=== PATIENT | female | born 1975 | race Caucasian/White ===

== ENCOUNTER 2020-10-03 08:14 | Outpatient (REF) | payer OTHER, SELFPAY ==
[2020-10-03 08:45] LABS: MANUAL DIFF FLAG NO
[2020-10-03 08:51] LABS: Basophils Percent Auto 0.6 % (0-2); Eosinophils Absolute Auto 0.2 X10*3/uL (0.0-0.4); Eosinophils Percent Auto 3.4 % (0-4); Hematocrit 35.4 % (37-47); Imm Gran Abs Auto 0.01 X10*3/uL (0.00-0.03); Imm Gran Pct Auto 0.2 % (0.0-0.4); Lymphocytes Absolute Auto 1.8 X10*3/uL (1.2-4.9); Lymphocytes Percent Auto 38.9 % (20-40); Mean Corpuscular HGB Conc 31.1 g/dl (31.0-35.0); Mean Corpuscular Hemoglobin 26.3 pg (27.0-33.0); Mean Corpuscular Volume 84.7 fL (80-98); Mean Platelet Volume 10.7 fL (9.4-12.3); Monocytes Absolute Auto 0.3 X10*3/uL (0.1-1.2); Monocytes Percent Auto 6.1 % (2-11); Neutrophils Absolute Auto 2.4 X10*3/uL (2.0-8.3); Neutrophils Percent Auto 50.8 % (45-73); Platelet Count 167 X10*3/uL (160-400); Red Blood Count 4.18 X10*6/uL (4.20-5.50); Red Cell Distribution Width 14.3 % (11.0-16.0); White Blood Count 4.7 X10*3/uL (4.8-10.8)
[2020-10-03 09:12] LABS: Alanine Aminotransferase 10 U/L (0-31); Albumin Level 3.8 g/dL (3.5-5.0); Alkaline Phosphatase 78 U/L (39-117); Anion Gap 10 (12-20); Aspartate Amino Transferase 16 U/L (5-31); Bilirubin Total 0.4 mg/dL (0.0-1.0); Blood Urea Nitrogen 11 mg/dL (9-16); Calcium 8.6 mg/dL (8.4-10.2); Carbon Dioxide 27 mmol/L (22-29); Chloride 108 mmol/L (96-108); Cholesterol 152 mg/dL; Estimated Glomerular Filt Rate > 60; Glucose Fasting 89 mg/dL (60-99); HDL Cholesterol 56 mg/dL; Iron 54 mcg/dL (30-160); LDL Cholesterol Calculated 86 mg/dl; Percent Iron Saturation 16 % (15-50); Potassium 4.1 mmol/L (3.3-5.1); Sodium 141 mmol/L (135-145); Total Iron Binding Capacity 329 mcg/dL (228-428); Total Protein 6.1 g/dL (6.5-8.0); Triglycerides 53 mg/dL; Unsaturated Iron Binding 275 ug/dL
[2020-10-10 18:02] LABS: Vitamin D 25-OH, D2 <4 ng/mL; Vitamin D 25-OH, D3 10 ng/mL; Vitamin D 25-OH, Total 10 ng/mL (30-100)
== END 2020-10-03 08:15 | disposition home or self-care (01) ==
LOC: HO.LAB 08:14
PROVIDERS: PCP Internal Medicine; Visit Provider Internal Medicine
DX: D64.9 Anemia, unspecified (principal); J45.909 Unspecified asthma, uncomplicated; E66.3 Overweight; E78.5 Hyperlipidemia, unspecified; E55.9 Vitamin D deficiency, unspecified
CPT/HCPCS: 36415; 80053; 80061; 82306; 83540; 85025

== ENCOUNTER 2020-10-13 07:50 | Outpatient (REF) | payer OTHER, SELFPAY ==
--- NOTE | ~2020-10-13 | MM_ITS ---
EXAMINATION: MM DIAGNOSTIC DIGITAL BREAST TOMOSYNTHESIS, BILATERAL US DIAGNOSTIC ULTRASOUND BREAST, RIGHT CLINICAL INFORMATION: 45-year-old with palpable nodularity noted by patient posterior outer right breast and upper right breast. Prior history reduction mammoplasty 1996. Significant weight loss following bariatric surgery since prior mammography. Prior outside breast imaging performed in [place] currently unavailable. Family history breast cancer, maternal grandmother. The lifetime risk of breast cancer based on the Tyrer-Cuzick Model is 12%. COMPARISON: None. TECHNIQUE: Digital breast tomosynthesis is performed in both the craniocaudal and mediolateral oblique views along with computer-aided detection (CAD). Synthesized 2D images are generated from the tomosynthesis. Additional bilateral exaggerated CC views are provided. Ultrasound right breast is targeted to the areas of clinical concern and mammographic findings posterior outer right breast and upper posterior right breast. Grayscale imaging and color Doppler are performed without and with harmonics. FINDINGS: There are scattered areas of fibroglandular density (ACR BI-RADS breast composition Category b). There is minor bilateral scarring and multiple benign small round calcifications predominantly superficial anterior breasts, consistent with the history of bilateral reduction mammoplasty. The left breast is unremarkable. There is no significant mass or architectural abnormality. The right breast has macrolobulated mass posterior 9:00 position in area of clinical concern measuring approximately 2.3 x 1.8 cm. There is also a mass posterior 1:00 position with macrolobulated margins corresponding to the area of palpable area measuring around 1.5 cm. This is a solitary small internal round calcification. Ultrasound right breast demonstrates hypoechoic macrolobulated mass posterior 9:00 position at site of clinical concern with macrolobulated margins and overall size approximately 2.3 x 1.3 x 1.4 cm. There is some scattered internal color flow. No increased or decreased through transmission of sound. There is a smaller mass posterior 1:00 position 12 cm from nipple corresponding to the other area of palpable concern and mammographic finding, circumscribed and hypoechoic, with overall size approximately 1.4 x 0.9 cm. There is small specular echo within the lesion corresponding to the calcification on mammography. There is no increased or decreased through transmission of sound. Some internal color flow is seen. Results are discussed with the patient at time of visit. The patient has had significant intentional weight loss of over 100 pounds following bariatric surgery. The palpable masses are of uncertain chronicity and could represent chronic fibroadenomas. Radiology department will attempt to retrieve prior outside breast imaging exams (or reports) from [place] to allow for comparison in an addendum report. If the masses are new or have increased in size, or if the prior outside exams cannot be retrieved, then ultrasound-guided core sampling would be recommended. MM/MM tomosynthesis diagnostic BI IMPRESSION: 1. Right: 2 solid masses corresponding to the areas of palpable concern posterior outer breast 2.3 cm, and posterior upper breast 1.4 cm, statistically likely fibroadenomas. 2. Left: No mammographic evidence of malignancy. ASSESSMENT: BI-RADS 0: Incomplete - pending review of outside imaging exams RECOMMENDATION: 1. Radiology department staff will attempt to retrieve prior outside breast imaging exams. 2. If outside exams are unable to be retrieved, then ultrasound-guided core sampling of the right breast masses would be recommended.
== END 2020-10-13 07:51 | disposition home or self-care (01) ==
LOC: HO.MAMMO 07:50
PROVIDERS: Visit Provider Internal Medicine
DX: N63.15 Unspecified lump in the right breast, overlapping quadrants (principal); N63.12 Unspecified lump in the right breast, upper inner quadrant
CPT/HCPCS: 76642; 77062; 77066

== ENCOUNTER 2020-11-09 08:42 | Outpatient (REF) | payer OTHER, SELFPAY ==
--- NOTE | ~2020-11-09 | US_ITS ---
EXAMINATION: ULTRASOUND GUIDED CORE BIOPSY BREAST (TWO SITES), RIGHT POST PROCEDURE DIGITAL MAMMOGRAM, RIGHT CLINICAL INFORMATION: 45-year-old with palpable nodularity posterior upper outer right breast and upper right breast, circumscribed solid on ultrasound, possibly fibroadenomas. COMPARISON: Mammography and targeted right breast ultrasound 10/13/2020. FINDINGS: Proper informed consent is obtained from the patient after discussion of the procedure, potential risks and complications, and alternatives. Patient was given an opportunity for questions. The patient appeared to understand. The patient consented to the procedure and signed the consent form. SPECIMEN A: LOCATION: Posterior outer right breast. GUIDANCE: Ultrasound-guided; aseptic technique. LESION: Circumscribed macrolobulated mass 2.3 cm. APPROACH: Lateral medial. ANESTHESIA: 10 mL 1% lidocaine. DERMATOTOMY: Single skin sarah dermatotomy performed. NEEDLE: 14-gauge Achieve core biopsy device with 13.5-gauge co-axial guide needle. CORES: 5. CLIP: HydroMARK; shape: butterfly. SPECIMEN B: New anesthesia and biopsy supplies are used. LOCATION: Posterior upper right breast. GUIDANCE: Ultrasound-guided; aseptic technique. LESION: Circumscribed solid mass 1.4 cm. APPROACH: Oblique caudal cranial. ANESTHESIA: 17 mL 1% lidocaine. DERMATOTOMY: A new skin sarah dermatotomy is performed to allow for the second site of biopsy. NEEDLE: 14-gauge Achieve core biopsy device with 13.5-gauge co-axial guide needle. CORES: 5. CLIP: HydroMARK; shape: open coil. POST PROCEDURE DIGITAL MAMMOGRAM: The post biopsy mammogram is performed in separate room using separate digital mammography equipment from the biopsy procedure. CC, exaggerated CC, and MLO views are obtained. There are scattered areas of fibroglandular density (breast composition category: b). The clip markers are in position. No gross hematoma. The patient tolerated the procedure well. No immediate complications. Home instructions reviewed with the patient. Final pathology results are pending. US/US breast ndl core bio ea add IMPRESSION: 1. Status post ultrasound-guided core biopsy right breast breast, 2 sites sampled. 2. Clips placed: HydroMARK; shape: butterfly and HydroMARK; shape: open coil 3. Pathology pending. An addendum report will be issued.
--- NOTE | ~2020-11-09 | US_ITS ---
EXAMINATION: ULTRASOUND GUIDED CORE BIOPSY BREAST (TWO SITES), RIGHT POST PROCEDURE DIGITAL MAMMOGRAM, RIGHT CLINICAL INFORMATION: 45-year-old with palpable nodularity posterior upper outer right breast and upper right breast, circumscribed solid on ultrasound, possibly fibroadenomas. COMPARISON: Mammography and targeted right breast ultrasound 10/13/2020. FINDINGS: Proper informed consent is obtained from the patient after discussion of the procedure, potential risks and complications, and alternatives. Patient was given an opportunity for questions. The patient appeared to understand. The patient consented to the procedure and signed the consent form. SPECIMEN A: LOCATION: Posterior outer right breast. GUIDANCE: Ultrasound-guided; aseptic technique. LESION: Circumscribed macrolobulated mass 2.3 cm. APPROACH: Lateral medial. ANESTHESIA: 10 mL 1% lidocaine. DERMATOTOMY: Single skin sarah dermatotomy performed. NEEDLE: 14-gauge Achieve core biopsy device with 13.5-gauge co-axial guide needle. CORES: 5. CLIP: HydroMARK; shape: butterfly. SPECIMEN B: New anesthesia and biopsy supplies are used. LOCATION: Posterior upper right breast. GUIDANCE: Ultrasound-guided; aseptic technique. LESION: Circumscribed solid mass 1.4 cm. APPROACH: Oblique caudal cranial. ANESTHESIA: 17 mL 1% lidocaine. DERMATOTOMY: A new skin sarah dermatotomy is performed to allow for the second site of biopsy. NEEDLE: 14-gauge Achieve core biopsy device with 13.5-gauge co-axial guide needle. CORES: 5. CLIP: HydroMARK; shape: open coil. POST PROCEDURE DIGITAL MAMMOGRAM: The post biopsy mammogram is performed in separate room using separate digital mammography equipment from the biopsy procedure. CC, exaggerated CC, and MLO views are obtained. There are scattered areas of fibroglandular density (breast composition category: b). The clip markers are in position. No gross hematoma. The patient tolerated the procedure well. No immediate complications. Home instructions reviewed with the patient. Final pathology results are pending. US/US breast ndl core biopsy RT IMPRESSION: 1. Status post ultrasound-guided core biopsy right breast breast, 2 sites sampled. 2. Clips placed: HydroMARK; shape: butterfly and HydroMARK; shape: open coil 3. Pathology pending. An addendum report will be issued.
== END 2020-11-09 08:43 | disposition home or self-care (01) ==
LOC: HO.MAMMO 08:42
PROVIDERS: Visit Provider Surgery
DX: N63.15 Unspecified lump in the right breast, overlapping quadrants (principal); N63.12 Unspecified lump in the right breast, upper inner quadrant
CPT/HCPCS: 19083; 19084; 19286; 77065; 88305; 99202; A4648

== ENCOUNTER → 2020-11-16 15:56 | Outpatient (BNVA) | payer OTHER, SELFPAY | PROVIDERS: PCP Internal Medicine; Referring Provider Internal Medicine; Visit Provider Surgery | DX: D24.9 Benign neoplasm of unspecified breast (principal) | CPT/HCPCS: 99212 ==

== ENCOUNTER 2021-02-21 12:28 | Outpatient (REF) | payer OTHER, SELFPAY ==
[2021-02-21 14:09] LABS: Mean Corpuscular HGB Conc 30.6 g/dl (31.0-35.0); Mean Corpuscular Hemoglobin 25.6 pg (27.0-33.0); Mean Corpuscular Volume 83.7 fL (80-98); Mean Platelet Volume 12.4 fL (9.4-12.3); Platelet Count 181 X10*3/uL (160-400); Red Cell Distribution Width 14.6 % (11.0-16.0); White Blood Count 3.4 X10*3/uL (4.8-10.8)
[2021-02-21 14:11] LABS: Appearance Urine HAZY; Color Urine YELLOW; Glucose Urine UA NEG (NEG); Leukocyte Esterase Urine NEG (NEG); Nitrite Urine NEG (NEG); PH 6.5 (5.0-8.0); Specific Gravity - Urine 1.025 (1.005-1.025); Urine Blood NEG (NEG); Urine Ketones NEG (NEG); Urine Protein TRACE MG/DL (NEG-TRACE)
[2021-02-21 14:30] LABS: Alanine Aminotransferase 11 U/L (0-31); Alkaline Phosphatase 79 U/L (39-117); Anion Gap 11 (12-20); Aspartate Amino Transferase 18 U/L (5-31); Bilirubin Direct < 0.2 mg/dL (0.0-0.5); Bilirubin Total 0.5 mg/dL (0.0-1.0); Blood Urea Nitrogen 8 mg/dL (9-16); Calcium 9.1 mg/dL (8.4-10.2); Carbon Dioxide 26 mmol/L (22-29); Chloride 108 mmol/L (96-108); Cholesterol 144 mg/dL; Estimated Glomerular Filt Rate > 60; Glucose Random 66 mg/dL (60-115); HDL Cholesterol 54 mg/dL; LDL Cholesterol Calculated 71 mg/dl; Potassium 3.6 mmol/L (3.3-5.1); Sodium 141 mmol/L (135-145); Total Protein 6.4 g/dL (6.5-8.0); Triglycerides 99 mg/dL
[2021-02-22 13:22] LABS: Mumps Virus IgG Antibody <9.00 AU/mL; Rubella IgG Antibody 1.82 Index
[2021-02-24 14:46] LABS: TS Negative Control Passed; TS Panel A 0; TS Panel B 0; TS Positive Control Passed; TSpotTB Negative (SeeBelow)
== END 2021-02-21 12:29 | disposition home or self-care (01) ==
LOC: HO.HMGCLDS 12:28
PROVIDERS: PCP Internal Medicine; Visit Provider Internal Medicine
DX: Z00.00 Encounter for general adult medical examination without abnormal findings (principal); Z01.84 Encounter for antibody response examination
CPT/HCPCS: 36415; 80048; 80061; 80076; 81003; 85027; 86481; 86735; 86762; 86765; 86787

== ENCOUNTER 2021-03-29 07:38 | Emergency (ER) | payer OTHER, SELFPAY ==
--- NOTE | ~2021-03-29 | CT_ITS ---
EXAMINATION: CT ABDOMEN AND PELVIS WITH CONTRAST CLINICAL INFORMATION: History of gastric bypass. Abdominal pain. Evaluate for obstruction. COMPARISON: None TECHNIQUE: Multidetector volumetric images were obtained from the superior aspect of the liver through the pubic symphysis following administration 85 mL of Omnipaque 350 intravenous contrast. Sagittal and coronal reformatted images were obtained on the technologist's workstation. No oral contrast given. This CT examination was performed using dose optimization techniques as appropriate, variously including the following: *Automated exposure control *Adjustment of mA and/or kV according to patient size (this includes techniques or standardized protocols for targeted exams where dose is matched to indication/reason for exam; i.e. extremities or head) *Use of iterative reconstruction technique DLP: 648 mGy-cm FINDINGS: LUNG BASES: No acute findings in the visualized lung bases. No pulmonary consolidation or pleural effusion at either lung base. 2.1 x 2.3 cm solid, lobulated lesion of the right breast (image 50, series 4) corresponds to the previously biopsied fibroadenoma. LIVER: The liver has normal size, shape, and attenuation. No evidence of liver mass. GALLBLADDER AND BILIARY TREE: Gallbladder is surgically absent. No bile duct dilatation. PANCREAS: Normal. No edema, pancreatic ductal dilatation or mass. SPLEEN: Normal. ADRENAL GLANDS: Normal. KIDNEYS AND URETERS: The kidneys have normal size and cortical thickness. No solid mass or perinephric fluid collection. No urolithiasis or hydroureteronephrosis. BLADDER: Normal. No calculi or wall thickening. BOWEL AND PERITONEUM: Stomach is unremarkable. No dilated loops of bowel. The appendix is normal. No overt bowel wall thickening or mesenteric fat stranding. No ascites or pneumoperitoneum. ABDOMINAL WALL: Minimal protrusion of fat into the umbilicus. VASCULATURE: Abdominal aorta is normal in size and its branches are widely patent. Inferior vena cava is unremarkable LYMPH NODES: No pathologic sized lymph nodes in the abdomen or pelvis. No inguinal lymphadenopathy. PELVIC VISCERA: The contraceptive device is well centered within the endometrium. 1 cm and 1.9 cm calcified leiomyomas of the anterior uterine fundus. No evidence of ovarian mass. The 1 cm transverse diameter structure posterior to the right adnexa appears to represent an underdistended loop of small bowel (image 67, series 3) whereas the 0.8 x 3.2 cm hypodense structure in the left adnexal area might represent a hydrosalpinx (image 68, series 3). Small, physiologic amount free fluid is present in the posterior cul-de-sac. SKELETAL: Unremarkable. CT/CT abdomen pelvis w con IMPRESSION: * No acute imaging abnormalities in the abdomen or pelvis. No evidence of acute inflammatory change or obstruction of bowel, status post Deepthi-en-Y gastric bypass. * No evidence of nephrolithiasis or hydronephrosis. * There are two calcified leiomyomas of the uterine fundus. IUD is in satisfactory position. There is a possible left-sided hydrosalpinx.
[2021-03-29 07:52] VITALS: BP 138/89; PULSE 55; RESP 15; TEMP 36.8; O2SAT 98; BMI 23.3
--- NOTE | 2021-03-29 08:09 | ED_ITS ---
HPI - Abdominal Pain General Chief Complaint: Abdominal Pain Stated Complaint: ABD PAIN Time Seen by Provider: 03/29/21 07:53 Source: patient Mode of arrival: ambulatory Limitations: no limitations History of Present Illness HPI narrative: 45-year-old female who presents emergency department for evaluation of abdominal pain. She states the pain started on Saturday (3 days prior sees. The pain came on gradually but got progressively worse. She points to her epigastric, left upper quadrant and left lower quadrant when asked to localize the pain. She states the pain is a constant, burning sensation and is 9/10 at its worst. She states that feels similar to her gallbladder pain, she had a cholecystectomy in 2018. The patient states she has had 3 episodes of vomiting since onset of the pain. She states she has had poor appetite and poor oral intake. She has persistent nausea. She states that her last bowel movement was on Saturday morning, 3 days prior. Patient does have a history of gastric bypass surgery done on March 19, 2020 17 at [facility] in [place]. Related Data Home Medications Medication Instructions Recorded Confirmed omeprazole 20 mg tablet,delayed 20 mg PO BID 11/09/20 11/16/20 release Previous Rx's Medication Instructions Recorded albuterol sulfate 90 mcg/actuation 2 puff INHALATION Q4-6H PRN 30 09/29/20 aerosol inhaler Days #6.7 g fluticasone propionate 110 1 puff INHALATION Q12H 30 Days #12 09/29/20 mcg/actuation HFA aerosol inhaler g (Flovent HFA) ergocalciferol (vitamin D2) 1,250 1,250 mcg PO QWEEK 90 Days #13 cap 10/10/20 mcg (50,000 unit) capsule albuterol sulfate 2.5 mg INHALATION Q4-6H PRN 30 01/19/21 Days #75 ml Allergies Allergy/AdvReac Type Severity Reaction Status Date / Time seafood Allergy Mild mild Verified 02/21/21 11:53 Review of Systems Review of Systems Yes all other systems are reviewed and are negative Physical Exam Vital Signs: Vital Signs: Last Vital Signs Temp 97.9 F 03/29/21 11:13 Pulse 51 03/29/21 11:13 Resp 16 03/29/21 11:13 BP 110/67 03/29/21 11:13 Pulse Ox 98 03/29/21 11:13 Body Mass Index 23.3 Const: General: cooperative and no acute distress Orientation/consciousness: oriented to person and oriented to place Limitations: no limitations HENMT: Head: Yes normal to inspection, Yes normocephalic and Yes atraumatic Ears: external ears normal General nose exam: Normal external nose present Face and sinus: Yes normal facial exam Mouth: Normal oral and palatal mucosa present Throat: Yes posterior oropharynx normal Eyes: General: appearance normal, both eyes and all related structures Pupils: Equal, round and reactive pupils present Neck: Neck: Yes normal visual inspection, Yes no lymphadenopathy, Yes trachea midline and Yes supple Chest: Chest palpation & inspection: normal inspection of the chest and normal palpation of entire chest wall Resp: Effort & Inspection: normal respiratory effort and able to speak in complete sentences Auscultation: wheezes (Diffuse inspiratory expiratory wheezing) Cardio: Rate: regular rate Rhythm: regular rhythm Heart sounds: S1 normal heart sound present, S2 normal heart sound present and no murmurs GI: Inspection: Yes normal to inspection Palpation (GI): Soft to palpation, Tenderness to palpation present (GI) in the epigastrum (Moderate), in the LLQ (Moderate) and in the LUQ (Moderate) and no guarding Auscultation: normal bowel sounds : General: Yes no CVA tenderness Back/Spine/Pelvis: Back: no CVA tenderness Skin: General skin exam: no rashes or lesions noted Neuro: General: oriented to person and oriented to place Cranial nerves: Yes CN's II-XII intact bilaterally and Yes Equal, round and reactive pupils present Cognition (Neuro): normal cognition Motor exam (neuro): 5/5 motor strength present throughout Extrem: General: Yes normal to inspection Psych: Appearance: grossly normal Speech and movement: Normal speech and movement present Affect: normal affect Attitude: cooperative Thought process: Normal thought process present Thought content: Normal thought content present Course Course Course Narrative: 45-year-old female who presents emergency department for evaluation of 3 days of epigastric, left upper quadrant and left lower quadrant pain which has been constant associated with 3 episodes vomiting and persistent nausea, she has had lack of appetite and poor oral intake. The patient states the pain is similar to her cholecystitis pain, she had a cholecystectomy in 2018 . She also had gastric bypass surgery in 2017. The patient's vital signs were normal. The patient had moderate epigastric left upper quadrant left lower quadrant tenderness. I ordered the following workup: CBC, CMP, lipase, lactate, urinalysis, COVID-19, CT scan of the abdomen pelvis with IV contrast. Patient's pain was treated with morphine 4 mg IV and Zofran 4 mg IV. She also ordered to get normal saline x1 L. Patient did have wheezing on her lung exam, she does have asthma, she was treated with albuterol inhaler with spacer 4 puffs. 1138: Laboratory evaluation: The patient has a low WBC of 3400, H&H was low at 10.3 and 32.3 with a normal MCV. CMP was normal. Lipase was not elevated. CT scan of the abdomen pelvis with IV contrast did not reveal a clear cause for the patient's pain. Patient pain is resolved after the above treatment and the patient's wheezing has also resolved. At this time I suspect the patient's pain is secondary to gastritis, patient will be treated with Prilosec 20 mg once a day for 1 month, she was also advised to take Gaviscon extra-strength. Patient was advised to continue taking her albuterol as needed for wheezing. Patient was given printed and verbal instructions and discharged home. MDM - Abdominal Pain Lab Data Result diagrams: 03/29/21 08:23 03/29/21 08:23 Labs: Lab Results 03/29/21 03/29/21 03/29/21 Range/Units 08:23 08:23 08:23 WBC 3.4 L (4.8-10.8) X10*3/uL RBC 3.96 L (4.20-5.50) X10*6/uL Hgb 10.3 L (12.0-16.0) g/dl Hct 32.3 L (37-47) % MCV 81.6 (80-98) fL MCH 26.0 L (27.0-33.0) pg MCHC 31.9 (31.0-35.0) g/dl RDW 13.7 (11.0-16.0) % Plt Count 186 (160-400) X10*3/uL MPV 11.5 (9.4-12.3) fL Immature Gran % (Auto) 0.3 (0.0-0.4) % Neut % (Auto) 45.6 (45-73) % Lymph % (Auto) 44.2 H (20-40) % [place] % (Auto) 5.4 (2-11) % Eos % (Auto) 3.9 (0-4) % Baso % (Auto) 0.6 (0-2) % Lymph # (Auto) 1.5 (1.2-4.9) X10*3/uL [place] # (Auto) 0.2 (0.1-1.2) X10*3/uL Eos # (Auto) 0.1 (0.0-0.4) X10*3/uL Baso # (Auto) 0.0 (0.0-0.2) X10*3/uL Abs Immat Gran (auto) 0.01 (0.00-0.03) X10*3/uL Absolute Neuts (auto) 1.5 L (2.0-8.3) X10*3/uL Absolute Nucleated RBC 0.000 (0.0-0.012) X10*3/uL Nucleated RBC % (auto) 0.0 (0.0-0.2) /100WBC Sodium 139 (135-145) mmol/L Potassium 3.9 (3.3-5.1) mmol/L Chloride 107 (96-108) mmol/L Carbon Dioxide 25 (22-29) mmol/L Anion Gap 11 L (12-20) BUN 10 (9-16) mg/dL Creatinine 0.83 (0.5-1.4) mg/dL Estim Creat Clear Calc 77.8 Estimated GFR > 60 Random Glucose 83 (60-115) mg/dL Lactic Acid 0.9 (0.5-2.0) mmol/L Calcium 8.7 (8.4-10.2) mg/dL Total Bilirubin 0.4 (0.0-1.0) mg/dL AST 15 (5-31) U/L ALT 10 (0-31) U/L Alkaline Phosphatase 68 (39-117) U/L Total Protein 6.2 L (6.5-8.0) g/dL Albumin 3.8 (3.5-5.0) g/dL Lipase 25 (8-78) U/L COVID-19 (TERRI) (Negative) COVID-19 Clin Com 03/29/21 Range/Units 08:23 WBC (4.8-10.8) X10*3/uL RBC (4.20-5.50) X10*6/uL Hgb (12.0-16.0) g/dl Hct (37-47) % MCV (80-98) fL MCH (27.0-33.0) pg MCHC (31.0-35.0) g/dl RDW (11.0-16.0) % Plt Count (160-400) X10*3/uL MPV (9.4-12.3) fL Immature Gran % (Auto) (0.0-0.4) % Neut % (Auto) (45-73) % Lymph % (Auto) (20-40) % [place] % (Auto) (2-11) % Eos % (Auto) (0-4) % Baso % (Auto) (0-2) % Lymph # (Auto) (1.2-4.9) X10*3/uL [place] # (Auto) (0.1-1.2) X10*3/uL Eos # (Auto) (0.0-0.4) X10*3/uL Baso # (Auto) (0.0-0.2) X10*3/uL Abs Immat Gran (auto) (0.00-0.03) X10*3/uL Absolute Neuts (auto) (2.0-8.3) X10*3/uL Absolute Nucleated RBC (0.0-0.012) X10*3/uL Nucleated RBC % (auto) (0.0-0.2) /100WBC Sodium (135-145) mmol/L Potassium (3.3-5.1) mmol/L Chloride (96-108) mmol/L Carbon Dioxide (22-29) mmol/L Anion Gap (12-20) BUN (9-16) mg/dL Creatinine (0.5-1.4) mg/dL Estim Creat Clear Calc Estimated GFR Random Glucose (60-115) mg/dL Lactic Acid (0.5-2.0) mmol/L Calcium (8.4-10.2) mg/dL Total Bilirubin (0.0-1.0) mg/dL AST (5-31) U/L ALT (0-31) U/L Alkaline Phosphatase (39-117) U/L Total Protein (6.5-8.0) g/dL Albumin (3.5-5.0) g/dL Lipase (8-78) U/L COVID-19 (TERRI) Negative (Negative) COVID-19 Clin Com See Note Discharge Plan Discharge Clinical Impression: Abdominal pain, Gastritis, Asthma exacerbation Patient Disposition: Home, Self-Care Instructions: Gastritis (ED) Additional Instructions: Your blood work did reveal a low white blood count of 3400 and anemia with a hemoglobin and hematocrit of 10.3 and 32.3. The COVID-[address] test was [address] The [address] scan of your abdomen pelvis did not reveal a clear cause for your pain. Prescriptions: No Action ergocalciferol (vitamin D2) 1,250 mcg (50,000 unit) capsule 1,250 mcg PO QWEEK 90 Days Qty: 13 RF: 0 albuterol sulfate 2.5 mg /3 mL (0.083 %) solution for nebulization 2.5 mg inhalation Q4-6H PRN (Reason: bronchospasm) 30 Days Qty: 75 RF: 0 Flovent HFA 110 mcg/actuation HFA aerosol inhaler 1 puff inhalation Q12H 30 Days Qty: 12 RF: 6 albuterol sulfate 90 mcg/actuation HFA aerosol inhaler 2 puff inhalation Q4-6H PRN (Reason: bronchospasm) 30 Days Qty: 6.7 RF: 6 omeprazole 20 mg tablet,delayed release (DR/EC) 20 mg PO BID RF: 0 PMFSH Past Medical History PMFSH Narrative: Past medical history: See below, she also has a history of asthma. Past surgical history: See below. Patient also had a bilateral tubal ligation. Social history: Patient smokes 2-3 cigarettes per day times 20 years. She denies alcohol use. She denies drug use. Medical History Anemia Breast mass Breast mass, right Depression Fibroadenoma of breast Hypovitaminosis D Mild asthma Overweight Surgical History Gastric bypass status for obesity Hx laparoscopic cholecystectomy Hx of breast reduction, elective Family History Family History Mother Asthma Hypertension Father Asthma Hypertension Maternal Grandmother Breast cancer Family/Other Breast cancer Social History Social History Alcohol intake: never Patient Tobacco Use Status: Current someday Tobacco user Use of substances other than those prescribed or required for medical reasons: No Advance Directives: No Advance Directives Information Provided: No Patient : No
[2021-03-29] MEDS: ondansetron HCL 4 MG/2 ML VIAL IVPUSH (08:24)
[2021-03-29] MEDS: Morphine Sulfate 4 MG/ML CARTRIDGE IVPUSH (08:24)
[2021-03-29] MEDS: Albuterol Sulfate 90 MCG 8 GM INHALER 4 PUFF INHALE (08:26)
[2021-03-29] MEDS: 0.9 % Sodium Chloride 1,000 ML 999 ML IV (08:26)
[2021-03-29 08:33] LABS: MANUAL DIFF FLAG NO
[2021-03-29 08:34] VITALS: PULSE 56; O2SAT 96
[2021-03-29 08:36] LABS: Basophils Percent Auto 0.6 % (0-2); Eosinophils Absolute Auto 0.1 X10*3/uL (0.0-0.4); Eosinophils Percent Auto 3.9 % (0-4); Hematocrit 32.3 % (37-47); Hemoglobin 10.3 g/dl (12.0-16.0); Imm Gran Abs Auto 0.01 X10*3/uL (0.00-0.03); Imm Gran Pct Auto 0.3 % (0.0-0.4); Lymphocytes Absolute Auto 1.5 X10*3/uL (1.2-4.9); Lymphocytes Percent Auto 44.2 % (20-40); Mean Corpuscular HGB Conc 31.9 g/dl (31.0-35.0); Mean Corpuscular Volume 81.6 fL (80-98); Mean Platelet Volume 11.5 fL (9.4-12.3); Monocytes Absolute Auto 0.2 X10*3/uL (0.1-1.2); Monocytes Percent Auto 5.4 % (2-11); Neutrophils Absolute Auto 1.5 X10*3/uL (2.0-8.3); Neutrophils Percent Auto 45.6 % (45-73); Platelet Count 186 X10*3/uL (160-400); Red Blood Count 3.96 X10*6/uL (4.20-5.50); Red Cell Distribution Width 13.7 % (11.0-16.0); White Blood Count 3.4 X10*3/uL (4.8-10.8)
[2021-03-29 08:45] LABS: Lactic Acid 0.9 mmol/L (0.5-2.0)
[2021-03-29 08:54] LABS: COVID-19 Test Negative (Negative)
[2021-03-29 09:02] LABS: Alanine Aminotransferase 10 U/L (0-31); Albumin Level 3.8 g/dL (3.5-5.0); Alkaline Phosphatase 68 U/L (39-117); Anion Gap 11 (12-20); Aspartate Amino Transferase 15 U/L (5-31); Bilirubin Total 0.4 mg/dL (0.0-1.0); Blood Urea Nitrogen 10 mg/dL (9-16); Calcium 8.7 mg/dL (8.4-10.2); Carbon Dioxide 25 mmol/L (22-29); Chloride 107 mmol/L (96-108); Creatinine Clr Calc Pharmacy 77.8; Estimated Glomerular Filt Rate > 60; Glucose Random 83 mg/dL (60-115); Lipase 25 U/L (8-78); Potassium 3.9 mmol/L (3.3-5.1); Sodium 139 mmol/L (135-145); Total Protein 6.2 g/dL (6.5-8.0)
[2021-03-29] MEDS: diphenhydrAMINE HCL 50 MG/ML VIAL IVPUSH (09:50)
[2021-03-29] MEDS: iohexoL 350 MG/ML 100 ML INFUS..BTL 85 ML IV (10:28)
[2021-03-29 11:13] VITALS: BP 110/67; PULSE 51; RESP 16; TEMP 36.6; O2SAT 98
== END 2021-03-29 11:59 | disposition home or self-care (01) ==
PROVIDERS: Emergency Provider Emergency Medicine Emergency Medical Services; PCP Internal Medicine
DX: K29.70 Gastritis, unspecified, without bleeding (principal); J45.901 Unspecified asthma with (acute) exacerbation; Z98.84 Bariatric surgery status; Z90.49 Acquired absence of other specified parts of digestive tract; Z20.822 Contact with and (suspected) exposure to COVID-19
CPT/HCPCS: 36415; 74177; 80053; 83605; 83690; 85025; 87635; 94640; 96361; 96374; 96375; 99284; 99285; J1200; J2270; J2405; Q9967

== ENCOUNTER 2021-05-27 15:19 | Outpatient (REF) | payer OTHER, SELFPAY ==
[2021-05-28 09:51] LABS: BV Int Neg Control Negative (Negative); BV Int Pos Control Positive (Positive)
== END 2021-05-27 15:20 | disposition home or self-care (01) ==
LOC: HO.LNP 15:19
PROVIDERS: Visit Provider Physician Assistant
DX: N76.0 Acute vaginitis (principal)
CPT/HCPCS: 87480; 87510; 87660

== ENCOUNTER 2021-05-31 08:33 | Outpatient (REF) | payer OTHER, SELFPAY ==
[2021-05-31 15:23] LABS: CT PCR NOT DETECTED (Not Detect.); NG PCR NOT DETECTED (Not Detect.)
[2021-06-01 09:34] LABS: BV Int Neg Control Negative (Negative); BV Int Pos Control Positive (Positive)
[2021-06-07 04:41] LABS: HPV mRNA E6/E7 rflx Not Detected (Not Detected)
== END 2021-05-31 08:34 | disposition home or self-care (01) ==
LOC: HO.LAB 08:33
PROVIDERS: PCP Internal Medicine; Visit Provider Advanced Practice Midwife
DX: Z01.411 Encounter for gynecological examination (general) (routine) with abnormal findings (principal); Z11.51 Encounter for screening for human papillomavirus (HPV); N76.0 Acute vaginitis; N84.1 Polyp of cervix uteri; D24.9 Benign neoplasm of unspecified breast; Z86.018 Personal history of other benign neoplasm
CPT/HCPCS: 87480; 87491; 87510; 87591; 87624; 87660; 88142

== ENCOUNTER 2021-06-01 08:39 | Outpatient (REF) | payer OTHER, SELFPAY | END 2021-06-01 08:40 | disposition home or self-care (01) | LOC: HO.HMGCLDS 08:39 | PROVIDERS: PCP Internal Medicine; Visit Provider Internal Medicine | DX: Z20.822 Contact with and (suspected) exposure to COVID-19 (principal) | CPT/HCPCS: C9803; U0003; U0005 ==

== ENCOUNTER 2021-06-12 14:04 | Outpatient (REF) | payer OTHER, SELFPAY ==
[2021-06-12 15:02] LABS: Influenza A PCR NEGATIVE (Negative); Influenza B PCR NEGATIVE (Negative); Resp Syncy Virus RNA Qual PCR NEGATIVE (Negative); SARS COV2 PCR INHOUSE POSITIVE (Negative)
== END 2021-06-12 14:05 | disposition home or self-care (01) ==
LOC: HO.LNP 14:04
PROVIDERS: Visit Provider Nurse Practitioner Family
DX: R52 Pain, unspecified (principal); Z20.822 Contact with and (suspected) exposure to COVID-19
CPT/HCPCS: 0241U

== ENCOUNTER 2021-06-22 12:50 | Outpatient (REF) | payer OTHER, SELFPAY ==
--- NOTE | ~2021-06-22 | US_ITS ---
EXAMINATION: US PELVIS CLINICAL INFORMATION: Uterine leiomyoma, cervical polyp, question [place] in place COMPARISON: CT abdomen and pelvis 03/29/2021 TECHNIQUE: Ultrasound of the pelvis is performed using both transabdominal and transvaginal transducers along with Doppler. Transvaginal imaging is performed due to inadequate visualization transabdominally. FINDINGS: Uterus: The uterus is anteverted and measures 9.5 x 5.7 x 6.2 cm. There are multiple calcified shadowing uterine fibroids including a 1.4 cm left fundal fibroid, 1.3 cm left uterine body calcified fibroid, 1.4 cm calcified left uterine body fibroid and a 2.0 cm uterine body fibroid. 1.9 cm right uterine body fibroid. The endometrium measures 0.9 cm, there is an IUD in place. Adnexa: Both ovaries are visualized. There is normal color flow to the adnexa. There is no ovarian torsion. There is no pelvic ascites or fluid collection. Right ovary measures 2.5 x 1.5 x 1.7 cm. Simple cyst versus follicle of the right ovary measuring 1.0 cm Left ovary measures 4.2 x 2.0 x 3.0 cm. 2.3 cm cyst and a 1.9 cm left ovarian cyst without suspicious features. US/US pelvic and transvaginal IMPRESSION: Multiple calcified and noncalcified fibroids. IUD in place.
--- NOTE | ~2021-06-22 | MM_ITS ---
EXAMINATION: MM DIAGNOSTIC DIGITAL BREAST TOMOSYNTHESIS, RIGHT US DIAGNOSTIC ULTRASOUND BREAST, RIGHT CLINICAL INFORMATION: 45-year-old with increasing palpable fullness at site of prior benign biopsy posterior outer right breast. Personal history bilateral reduction mammoplasty in 1996. TC score 10%. Prior history ultrasound guided biopsy right breast at 2 sites 11/09/2020 (both fibroadenoma without atypia or malignancy). COMPARISON: Mammography: 11/09/2020, 10/13/2020 (diagnostic, new baseline); targeted right breast ultrasound 10/13/2020, ultrasound-guided right breast biopsy 11/09/2020. TECHNIQUE: Digital breast tomosynthesis is performed in both the craniocaudal and mediolateral oblique views along with computer-aided detection (CAD). Synthesized 2D images are generated from the tomosynthesis. Additional right MLO view and exaggerated right CC view are obtained. Ultrasound right breast is targeted to the area of clinical concern posterior outer breast. Grayscale imaging and color Doppler are performed without and with harmonics. FINDINGS: There are scattered areas of fibroglandular density (ACR BI-RADS breast composition Category b). Parenchymal pattern is similar to prior studies. There is no interval mass or architectural abnormality or abnormal calcifications. The known fibroadenoma posterior upper outer right breast, superior to the site of palpable concern is stable to slightly smaller. Prior measurements are 1.7 x 1.4 cm on MLO view compared with current measurements 1.4 x 1.3 cm. The other mass posterior 9:00 position appears larger and extends beyond the [id number]. Ultrasound targeted to the area of palpable concern posterior 9:00 position demonstrates known fibroadenoma with current dimensions 2.7 x 1.7 x 2.5 cm. Remeasurement prior ultrasound 10/13/2020 in same orientation demonstrates measurements 2.3 x 1.4 x 2.0 cm. Margins are macrolobulated. There is increased through-transmission of sound. No new cystic or mass. No edema are in soft tissue planes. Results are discussed with the patient at time of visit. Surgical consult is recommended for management of the known fibroadenoma with interval increased size. MM/MM tomosynthesis diagnostic BI IMPRESSION: Known fibroadenoma posterior 9:00 position is slightly larger when compared with prior imaging 10/13/2020. This is consistent with patient's perception of increased size. ASSESSMENT: BI-RADS 3: Probably Benign RECOMMENDATION: Surgical consult for fibroadenoma with increased size since prior imaging. This patient's information was entered into a reminder system with a target due date for their next mammogram.
== END 2021-06-22 12:51 | disposition home or self-care (01) ==
LOC: HO.MAMMO 12:50
PROVIDERS: Visit Provider Advanced Practice Midwife
DX: Z01.419 Encounter for gynecological examination (general) (routine) without abnormal findings (principal); D24.1 Benign neoplasm of right breast; N84.1 Polyp of cervix uteri; Z86.018 Personal history of other benign neoplasm
CPT/HCPCS: 76642; 76830; 76856; 77062; 77066

== ENCOUNTER → 2021-06-27 11:16 | Outpatient (BNVA) | payer OTHER, SELFPAY | PROVIDERS: Visit Provider Advanced Practice Midwife ==

== ENCOUNTER → 2021-07-05 10:53 | Outpatient (BNVA) | payer OTHER, SELFPAY | PROVIDERS: Referring Provider Internal Medicine; Visit Provider Surgery | DX: D24.9 Benign neoplasm of unspecified breast (principal) | CPT/HCPCS: 99212 ==

== ENCOUNTER 2021-10-05 13:23 | Outpatient (REF) | payer OTHER, SELFPAY ==
[2021-10-05 14:17] LABS: Influenza A PCR NEGATIVE (Negative); Influenza B PCR NEGATIVE (Negative); Resp Syncy Virus RNA Qual PCR NEGATIVE (Negative); SARS COV2 PCR INHOUSE NEGATIVE (Negative)
== END 2021-10-05 13:24 | disposition home or self-care (01) ==
LOC: HO.LAB 13:23
PROVIDERS: PCP Internal Medicine; Visit Provider Nurse Practitioner Family
DX: R05.9 Cough, unspecified (principal); Z20.822 Contact with and (suspected) exposure to COVID-19
CPT/HCPCS: 0241U

== ENCOUNTER → 2021-11-02 15:16 | Outpatient (BNVA) | payer OTHER, SELFPAY | PROVIDERS: PCP Internal Medicine; Visit Provider Hospitalist | DX: J45.51 Severe persistent asthma with (acute) exacerbation (principal); T78.40XA Allergy, unspecified, initial encounter; X58.XXXA Exposure to other specified factors, initial encounter; J30.9 Allergic rhinitis, unspecified | CPT/HCPCS: 99202 ==

== ENCOUNTER 2021-11-28 15:58 | Outpatient (REF) | payer OTHER, SELFPAY ==
--- NOTE | 2021-11-28 | PFT_ITS ---
Forced vital capacity 64%, FEV1 57%, FEV1/FVC ratio is 73, [id number] 37%, and MVV 49%. Post bronchodilator therapy, there is a significant improvement in FVC, FEV1, and [id number]. Total lung capacity 95%. Residual volume 154% indicating air trapping. Diffusion capacity 76%. CONCLUSION: Moderately severe obstructive airway disorder with good response to bronchodilator therapy. 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 Clinical correlation is recommended. Saloni Muniz MD MSViola/MODL / [id number]
== END 2021-11-28 15:59 | disposition home or self-care (01) ==
LOC: HO.RESP 15:58
PROVIDERS: PCP Internal Medicine; Visit Provider Hospitalist
DX: R06.00 Dyspnea, unspecified (principal); Z79.899 Other long term (current) drug therapy
CPT/HCPCS: 94060; 94727; 94729

== ENCOUNTER 2021-12-06 07:19 | Outpatient (REF) | payer OTHER, SELFPAY ==
[2021-12-06 08:13] LABS: Basophils Percent Auto 0.9 % (0-2); Eosinophils Absolute Auto 0.2 X10*3/uL (0.0-0.4); Eosinophils Percent Auto 5.4 % (0-4); Hematocrit 34.8 % (37.0-47.0); Hemoglobin 10.3 g/dl (12.0-16.0); Imm Gran Abs Auto 0.01 X10*3/uL (0.00-0.03); Imm Gran Pct Auto 0.2 % (0.0-0.4); Lymphocytes Absolute Auto 1.6 X10*3/uL (1.2-4.9); Lymphocytes Percent Auto 36.7 % (20-40); MANUAL DIFF FLAG NO; Mean Corpuscular HGB Conc 29.6 g/dl (31.0-35.0); Mean Corpuscular Volume 81.1 fL (80.0-98.0); Mean Platelet Volume 11.5 fL (9.4-12.3); Monocytes Absolute Auto 0.3 X10*3/uL (0.1-1.2); Monocytes Percent Auto 6.1 % (2-11); Neutrophils Absolute Auto 2.2 x10*3/uL (2.0-8.3); Neutrophils Percent Auto 50.7 % (45-73); Platelet Count 198 X10*3/uL (160-400); Red Blood Count 4.29 X10*6/uL (4.20-5.50); Red Cell Distribution Width 15.9 % (11.0-16.0); White Blood Count 4.4 X10*3/uL (4.8-10.8)
[2021-12-06 08:44] LABS: Anion Gap 12 (12-20); Blood Urea Nitrogen 13 mg/dL (9-16); Calcium 8.7 mg/dL (8.4-10.2); Carbon Dioxide 26 mmol/L (22-29); Chloride 106 mmol/L (96-108); Estimated Glomerular Filt Rate > 60; Glucose Random 109 mg/dL (60-115); Potassium 3.8 mmol/L (3.3-5.1); Sodium 140 mmol/L (135-145)
[2021-12-06 10:28] LABS: Erythrocyte Sedimentation Rate 7 MM/HR (0-20)
[2021-12-09 13:12] LABS: IgA 166 mg/dL (47-310); IgG 1022 mg/dL (600-1640); IgM 161 mg/dL (50-300)
== END 2021-12-06 07:20 | disposition home or self-care (01) ==
LOC: HO.LAB 07:19
PROVIDERS: PCP Internal Medicine; Visit Provider Hospitalist
DX: J45.901 Unspecified asthma with (acute) exacerbation (principal)
CPT/HCPCS: 36415; 80048; 82784; 82785; 85025; 85652; 86003

== ENCOUNTER → 2021-12-07 15:40 | Outpatient (BNVA) | payer OTHER, SELFPAY | PROVIDERS: PCP Internal Medicine; Visit Provider Hospitalist | DX: J45.51 Severe persistent asthma with (acute) exacerbation (principal); J44.9 Chronic obstructive pulmonary disease, unspecified; T78.40XA Allergy, unspecified, initial encounter; J30.9 Allergic rhinitis, unspecified; Z79.899 Other long term (current) drug therapy | CPT/HCPCS: 99212 ==

== ENCOUNTER 2022-01-09 22:00 | Emergency (ER) | payer OTHER, SELFPAY ==
--- NOTE | ~2022-01-09 | XR_ITS ---
EXAMINATION: LEFT FOOT AND ANKLE X-RAY CLINICAL INFORMATION: Pain COMPARISON: None TECHNIQUE: 3 views of the left foot and 3 views of the left ankle FINDINGS: Left foot: There is a transverse nondisplaced fracture of the base of the fifth metatarsal bone. No other fracture is seen. Joint spaces are normal. There is a small plantar calcaneal spur. There is soft tissue swelling adjacent to the fracture. Left ankle: Bone alignment is normal. No fracture or dislocation is the ankle mortise is normal. Soft tissues are normal. XR/XR foot LT min 3V IMPRESSION: Nondisplaced fracture of the base of the fifth metatarsal bone.
--- NOTE | ~2022-01-09 | XR_ITS ---
EXAMINATION: LEFT FOOT AND ANKLE X-RAY CLINICAL INFORMATION: Pain COMPARISON: None TECHNIQUE: 3 views of the left foot and 3 views of the left ankle FINDINGS: Left foot: There is a transverse nondisplaced fracture of the base of the fifth metatarsal bone. No other fracture is seen. Joint spaces are normal. There is a small plantar calcaneal spur. There is soft tissue swelling adjacent to the fracture. Left ankle: Bone alignment is normal. No fracture or dislocation is the ankle mortise is normal. Soft tissues are normal. XR/XR ankle LT min 3V IMPRESSION: Nondisplaced fracture of the base of the fifth metatarsal bone.
[2022-01-09 22:03] VITALS: BP 130/88; PULSE 79; RESP 19; TEMP 36.5; O2SAT 99; BMI 25.7
--- NOTE | 2022-01-09 23:55 | ED.FALL ---
HPI - Fall General Chief Complaint: Fall Stated Complaint: Fall/Foot inj Source: patient Mode of arrival: ambulatory Limitations: no limitations History of Present Illness HPI Narrative: 46-year-old female presents for evaluation for right foot pain after falling off of a sidewalk. She stepped between the space of the curb and her car door and felt a snap and crack. She had a difficult time ambulating, noted swelling and bruising, applied ice and took some Motrin with poor effect. Patient is unable to bear weight. She does not report any prodromal symptoms, denies chest pain or pressure, fevers and chills. MD complaint: fall Onset (ago): hour(s) (Within the hour of arrival) Fall from: standing Fall witnessed: no Place fall occurred: street Loss of consciousness: none Prolonged down time: no Symptoms prior to fall: none Context: tripped/slipped Location of injury - extremities: right: foot Severity: severe Severity scale (1-10): 10 Quality: aching Associated symptoms (after fall): denies Related Data Home Medications Medication Instructions Recorded Confirmed albuterol sulfate 2.5 mg/3 mL 2.5 mg inhalation Q4-6H PRN 11/02/21 (0.083 %) solution for nebulization bronchospasm Previous Rx's Medication Instructions Recorded ergocalciferol (vitamin D2) 1,250 1,250 mcg PO QWEEK 90 days #13 caps 07/22/21 mcg (50,000 unit) capsule omeprazole 20 mg tablet,delayed 20 mg PO DAILY 90 days #90 tabs 08/30/21 release albuterol sulfate 90 mcg/actuation 2 puff inhalation Q4-6H PRN 10/03/21 aerosol inhaler bronchospasm 30 days #6.7 grams fluticasone propionate 110 1 puff inhalation Q12H 30 days #12 10/03/21 mcg/actuation HFA aerosol inhaler grams (Flovent HFA) budesonide-formoterol HFA 160 2 puff inhalation BID 30 days 11/02/21 mcg-4.5 mcg/actuation aerosol #10.2 grams inhaler (Symbicort) ipratropium 0.5 mg-albuterol 3 mg 3 ml inhalation QID 30 days #360 mL 11/02/21 (2.5 mg base)/3 mL nebulization soln tiotropium bromide 2.5 2 puff inhalation DAILY 90 days #3 11/02/21 mcg/actuation mist for inhalation ea (Spiriva Respimat) budesonide 0.5 mg/2 mL suspension 0.5 mg (2 mL) inhalation BID 30 12/07/21 for nebulization days #120 mL budesonide 0.5 mg/2 mL suspension 0.5 mg (2 mL) inhalation BID 30 12/07/21 for nebulization days #120 mL prednisone 10 mg tablet 20 mg PO DAILY 30 days #60 tabs 12/07/21 tezepelumab-ekko 210 mg/1.91 mL 210 mg (1.91 mL) subcut Q4W #1.91 12/20/21 (110 mg/mL) subcutaneous syringe mL (Tezspire) fluticasone propionate 50 1 spray intranasal DAILY #100 mL 01/01/22 mcg/actuation nasal spray,suspension (Flonase Allergy Relief) oxycodone 5 mg tablet 5 mg PO Q8H PRN pain 3 days #9 tabs 01/10/22 Allergies Allergy/AdvReac Type Severity Reaction Status Date / Time seafood Allergy Mild mild Verified 01/09/22 22:03 Review of Systems Review of Systems: Constitutional: No Fever, No Chills ENT/Mouth: No Ear Pain, No Hoarseness, No sore throat Eyes: No Eye Pain, No Swelling, No Redness, No Foreign Body Cardiovascular: No Chest Pain, No SOB Respiratory: No Cough, No Dyspnea Gastrointestinal: No Nausea, No Vomiting, No Diarrhea, No abdominal Pain Genitourinary: No Dysuria, No Hematuria Musculoskeletal: positive right foot pain, No Myalgias, No Joint Swelling Skin: No Skin lacerations, No rash Neuro: No Weakness, No Numbness, No Paresthesias, No Loss of Consciousness, No Dizziness, No Headache Psych: No Anxiety/Panic, No Depression Heme/Lymph: no easy bruising, no Lymphadenopathy Endocrine: No Polyuria, No Polydipsia Yes all other systems are reviewed and are negative [facility] Past Medical History Attestation statement: The following information was validated with the patient. Source: old records reviewed Medical History Allergies Anemia Asthma Breast mass Breast mass, right Cervical cancer screening Chronic allergic rhinitis Depression Fibroadenoma of breast Hypovitaminosis D Mild asthma Overweight Surgical History Gastric bypass status for obesity Hx laparoscopic cholecystectomy Hx of breast reduction, elective Hx of tubal ligation Family History Family History Mother Asthma Hypertension Father Asthma Hypertension Maternal Grandmother Breast cancer Family/Other Breast cancer Social History Social History Housing: House Alcohol intake: never Patient Tobacco Use Status: Current someday Tobacco user Cigarettes Per Day: 2 Advance Directives: No Current occupational status: employed Cognitive needs: No Hearing needs: No Vision needs: No Physical Exam Vital Signs: Vital Signs: Last Vital Signs Temp 97.7 F 01/09/22 22:03 Pulse 79 01/09/22 22:03 Resp 19 01/09/22 22:03 BP 130/88 01/09/22 22:03 Pulse Ox 99 01/09/22 22:03 O2 Del Method 01/09/22 22:03 BMI result Body Mass Index 25.7 Appearance: Alert. Oriented X3. Moderate distress. Eyes: Pupils equal, round and reactive to light. ENT: Pharynx normal. Neck: Normal inspection. Neck supple. CVS: Normal heart rate and rhythm. Pulses normal. Respiratory: No respiratory distress. Breath sounds normal. Abdomen: Soft and nontender. Skin: Skin warm and dry. Normal skin color. Normal skin turgor. Extremities: Ecchymosis and swelling noted to the right lateral aspect of the foot from the malleolar process to the mid forefoot. Decreased flexion extension to the right ankle. Brisk capillary refill and equal pulses to bilateral lower extremities. Neuro: No motor deficit. No sensory deficit. Cranial nerves 2-12 intact. Course Course Course Narrative: 46-year-old female presents to the emergency department for evaluation for right foot pain swelling and ecchymosis. Patient is unable to bear weight. Has decreased range of motion. X-rays completed while patient was in the emergency department waiting room. Indicates a 5th metatarsal fracture consistent with Chinchilla. Plan of care is for pain management, posterior short-leg splint with extra padding, crutches with nonweightbearing instructions. Will have patient follow-up orthopedics. Will treat with oxycodone. Narcotic education provided including high risk for addiction. Patient verbalized understanding of and agrees plan of care discharge home. Verbalized understanding of signs and symptoms indicating need for emergent intervention. Procedures Orthopedic Splinting/Casting Injury #1: Side: right Lower Extremity Injury Location: foot Lower Extremity Immobilizer: posterior splint and Chinchilla dressing Other Orthopedic Equipment: crutches MDM - Fall Differential Diagnosis Differential diagnosis: Likely dislocation and fracture Medical Records Attestation: I reviewed the patient's medical records. Imaging Data Foot ankle x-ray: Attestation: I personally reviewed and interpreted this imaging study as follows: Radiologist's impression: EXAMINATION: LEFT FOOT AND ANKLE X-RAY CLINICAL INFORMATION: Pain? COMPARISON: None? TECHNIQUE: 3 views of the left foot and 3 views of the left ankle? FINDINGS: Left foot: There is a transverse nondisplaced fracture of the base of the fifth metatarsal bone. No other fracture is seen. Joint spaces are normal. There is a small plantar calcaneal spur. There is soft tissue swelling adjacent to the fracture. Left ankle: Bone alignment is normal. No fracture or dislocation is the ankle mortise is normal. Soft tissues are normal. XR/XR ankle LT min 3V IMPRESSION: Nondisplaced fracture of the base of the fifth metatarsal bone.? Discharge Plan Discharge Clinical Impression: Closed fracture of fifth metatarsal bone Patient Disposition: Home, Self-Care Instructions: Crutch Instructions (ED), Foot Fracture in Adults (ED), R.I.C.E. Treatment (ED) Additional Instructions: You were evaluated for injury from a fall. You have a 5th metatarsal fracture consistent with a Chinchilla fracture. Please keep the splint on until you see orthopedics. You must use crutches for all walking. Do not bear weight to the foot. I prescribed oxycodone 5 mg tablets. This medication is narcotic and has high risk for addiction and abuse. Do Not drive or operate machinery while taking this medication. This medication can delay reaction, increased risk for fall, cause drowsiness, and constipation. Take MiraLax on a daily basis while taking this medication. You must follow-up with orthopedics. I referred to Gem GARCIA. please call and request an appointment. Alternate Tylenol 650 mg every 6 hours and Motrin 600 mg every 6 hours as needed. Your last dose of Motrin was given to you around 01:00. Next dose is due at 07:00. Consider taking Tylenol at 04:00. This way you can have a medication other than oxycodone every 3 hours to reduce pain. Write down what time you takes these medications to prevent accidental overdose. Thank you for choosing this emergency department for evaluation. Please follow-up with primary care physician as needed. Return to the emergency department for any new, concerning, or worsening symptoms. Prescriptions: New oxycodone 5 mg tablet 5 mg PO Q8H PRN (Reason: pain) 3 Days Qty: 9 0RF Rx Instructions: Partial Fill upon patient request. Chinchilla fracture. No Action ergocalciferol (vitamin D2) 1,250 mcg (50,000 unit) capsule 1,250 mcg PO QWEEK 90 Days Qty: 13 0RF omeprazole 20 mg tablet,delayed release (DR/EC) 20 mg PO DAILY 90 Days Qty: 90 1RF albuterol sulfate 90 mcg/actuation HFA aerosol inhaler 2 puff inhalation Q4-6H PRN (Reason: bronchospasm) 30 Days Qty: 6.7 6RF Flovent HFA 110 mcg/actuation HFA aerosol inhaler 1 puff inhalation Q12H 30 Days Qty: 12 6RF Tezspire 210 mg/1.91 mL (110 mg/mL) syringe 210 mg subcut Q4W Qty: 1.91 11RF fluticasone propionate [Flonase Allergy Relief] 50 mcg/actuation spray,suspension 1 spray intranasal DAILY Qty: 100 0RF Rx Instructions: administer into each nostril albuterol sulfate 2.5 mg /3 mL (0.083 %) solution for nebulization 2.5 mg inhalation Q4-6H PRN (Reason: bronchospasm) budesonide-formoterol [Symbicort] 160-4.5 mcg/actuation HFA aerosol inhaler 2 puff inhalation BID 30 Days Qty: 10.2 11RF Spiriva Respimat 2.5 mcg/actuation mist 2 puff inhalation DAILY 90 Days Qty: 3 3RF ipratropium-albuterol 0.5 mg-3 mg(2.5 mg base)/3 mL solution for nebulization 3 ml inhalation QID 30 Days Qty: 360 11RF prednisone 10 mg tablet 20 mg PO DAILY 30 Days Qty: 60 6RF budesonide 0.5 mg/2 mL suspension for nebulization 0.5 mg inhalation BID 30 Days Qty: 120 11RF budesonide 0.5 mg/2 mL suspension for nebulization 0.5 mg inhalation BID 30 Days Qty: 120 11RF Referrals: Gem Amin PA-C [[facility]] - 2 days (Chinchilla fracture right foot) Stand Alone Forms: Work/School Release Interventions: ED Discharge Assessment Last Done: 01/10/22 01:31
[2022-01-10] MEDS: oxyCODONE HCl Immed Release 5 MG TABLET PO (00:55)
[2022-01-10] MEDS: Ibuprofen 600 MG TABLET PO (00:55)
--- NOTE | 2022-01-10 01:15 | PC.NURSE ---
PATIENT POSTERIOR SHORT LEG SPLINT WAS APPLY BY THIS PCT .
== END 2022-01-10 01:31 | disposition home or self-care (01) ==
PROVIDERS: Emergency Provider Internal Medicine
DX: S92.352A Displaced fracture of fifth metatarsal bone, left foot, initial encounter for closed fracture (principal); S90.415A Abrasion, left lesser toe(s), initial encounter; M25.572 Pain in left ankle and joints of left foot; W01.0XXA Fall on same level from slipping, tripping and stumbling without subsequent striking against object, initial encounter; Y93.9 Activity, unspecified; Y92.480 Sidewalk as the place of occurrence of the external cause; Y99.9 Unspecified external cause status; Z79.899 Other long term (current) drug therapy; F17.200 Nicotine dependence, unspecified, uncomplicated; Z71.6 Tobacco abuse counseling
CPT/HCPCS: 29515; 73610; 73630; 99284

== ENCOUNTER → 2022-01-18 10:25 | Outpatient (BNVA) | payer OTHER, SELFPAY | PROVIDERS: PCP Internal Medicine; Visit Provider Physician Assistant | DX: S92.352A Displaced fracture of fifth metatarsal bone, left foot, initial encounter for closed fracture (principal) | CPT/HCPCS: 29405; 99202 ==

== ENCOUNTER 2022-01-24 10:33 | Outpatient (REF) | payer OTHER, SELFPAY ==
--- NOTE | ~2022-01-24 | XR_ITS ---
EXAMINATION: XR FOOT, LEFT CLINICAL INFORMATION: Pain left foot COMPARISON: Left foot 01/09/2022 TECHNIQUE: AP, lateral, and oblique views of the left foot. FINDINGS: Again visualized a nondisplaced fracture base of fifth metatarsal no additional fracture seen. The ankle mortise and subtalar joints are normal. There is a small calcaneal enthesophyte. Soft tissues are normal. XR/XR foot LT min 3V IMPRESSION: Nondisplaced fracture base of fifth metatarsal. No change from 01/09/2022
== END 2022-01-24 10:34 | disposition home or self-care (01) ==
LOC: HO.HOSX 10:33
PROVIDERS: Visit Provider Physician Assistant
DX: S92.352D Displaced fracture of fifth metatarsal bone, left foot, subsequent encounter for fracture with routine healing (principal); X58.XXXD Exposure to other specified factors, subsequent encounter
CPT/HCPCS: 29405; 73630

== ENCOUNTER 2022-02-16 07:38 | Outpatient (REF) | payer OTHER, SELFPAY ==
--- NOTE | ~2022-02-16 | XR_ITS ---
EXAMINATION: XR FOOT, LEFT CLINICAL INFORMATION: Left foot pain. COMPARISON: Left foot radiographs dated 01/24/2022. TECHNIQUE: AP, lateral, and oblique views of the left foot. FINDINGS: Redemonstration of a transverse fracture through the base of the 5th metatarsal in unchanged anatomic alignment. No significant osseous bridging across the fracture line. The fracture gap is unchanged measuring up to 0.1 cm. No acute fracture or dislocation. No concerning lytic or blastic osseous lesion. No joint space narrowing or marginal osteophytes. Plantar calcaneal spur, unchanged. XR/XR foot LT min 3V IMPRESSION: Transverse fracture through the base of the 5th metatarsal, unchanged. No significant increase in osseous bridging.
== END 2022-02-16 07:39 | disposition home or self-care (01) ==
LOC: HO.HOSX 07:38
PROVIDERS: Visit Provider Physician Assistant
DX: S92.352D Displaced fracture of fifth metatarsal bone, left foot, subsequent encounter for fracture with routine healing (principal); F17.200 Nicotine dependence, unspecified, uncomplicated; Z71.6 Tobacco abuse counseling
CPT/HCPCS: 29405; 73630; 99212

== ENCOUNTER 2022-03-12 07:55 | Outpatient (REF) | payer OTHER, SELFPAY ==
--- NOTE | ~2022-03-12 | XR_ITS ---
EXAMINATION: XR FOOT, LEFT CLINICAL INFORMATION: Fracture COMPARISON: Previous x-ray 02/16/2022 TECHNIQUE: AP, lateral, and oblique views of the left foot. FINDINGS: Bone alignment is normal. There is a transverse nondisplaced fracture through the base of the fifth metatarsal bone. Fracture line appears more indistinct suggestive of evidence of healing. There is osteopenia. There is a small plantar calcaneal spur. Soft tissues are otherwise unremarkable. XR/XR foot LT min 3V IMPRESSION: Healing fracture of the base of the fifth metatarsal bone. Osteopenia.
== END 2022-03-12 07:56 | disposition home or self-care (01) ==
LOC: HO.HOSX 07:55
PROVIDERS: Visit Provider Physician Assistant
DX: S92.352D Displaced fracture of fifth metatarsal bone, left foot, subsequent encounter for fracture with routine healing (principal); X58.XXXD Exposure to other specified factors, subsequent encounter
CPT/HCPCS: 73630; 99212

== ENCOUNTER 2022-04-13 07:39 | Outpatient (REF) | payer OTHER, SELFPAY ==
--- NOTE | ~2022-04-13 | XR_ITS ---
EXAMINATION: XR FOOT, LEFT CLINICAL INFORMATION: Pain. COMPARISON: 03/12/2022 and 02/16/2022. TECHNIQUE: AP, lateral, and oblique views of the left foot. FINDINGS: There appears to be some degree of bony union fracture base of the fifth metatarsal with fracture line not being well seen. No acute fracture or dislocation of the left foot is seen. There is a plantar calcaneal spur present. XR/XR foot LT min 3V IMPRESSION: Bony union of left fifth metatarsal base fracture. Plantar calcaneal spur.
== END 2022-04-13 07:40 | disposition home or self-care (01) ==
LOC: HO.HOSX 07:39
PROVIDERS: Visit Provider Physician Assistant
DX: S92.352D Displaced fracture of fifth metatarsal bone, left foot, subsequent encounter for fracture with routine healing (principal)
CPT/HCPCS: 73630; 99212

== ENCOUNTER 2022-05-09 07:22 | Outpatient (REF) | payer OTHER, SELFPAY ==
[2022-05-09 08:02] LABS: COVID-19 Test Negative (Negative); IDNOW Serial# BCCEAD1C
== END 2022-05-09 07:23 | disposition home or self-care (01) ==
LOC: HO.LAB 07:22
PROVIDERS: Visit Provider Internal Medicine
DX: Z20.822 Contact with and (suspected) exposure to COVID-19 (principal)
CPT/HCPCS: 87635

== ENCOUNTER → 2022-09-06 09:28 | Outpatient (BNVA) | payer OTHER, SELFPAY | PROVIDERS: PCP Internal Medicine; Visit Provider Surgery | DX: D24.9 Benign neoplasm of unspecified breast (principal); Z80.3 Family history of malignant neoplasm of breast | CPT/HCPCS: 99212 ==

== ENCOUNTER 2022-10-02 07:55 | Day surgery (SDC) | payer OTHER, SELFPAY ==
[2022-09-27 09:19] VITALS: BMI 27.8
--- NOTE | 2022-10-01 10:03 | HO.ANESPROP2 ---
Documented by User: Loren Pan NP 10/01/22 10:04 HPI - Anesthesia Eval Consult details Narrative: 47yo F for Right Excision Fibroadema Breast PMFSH Active Problems Active Problems: All Active Problems (Updated 09/06/22 @ 09:53 by Fran Negrete MD) Family history of breast cancer (Acute) Fracture of fifth metatarsal bone of left foot with routine healing (Acute) Nondisplaced fracture of fifth right metatarsal bone (Acute) Chinchilla fracture (Acute) Chronic allergic rhinitis (Acute) Allergies (Acute) Asthma (Acute) Sinus congestion (Acute) Acute asthma exacerbation (Acute) Cough (Acute) History of abnormal uterine bleeding (Acute) Cervical cancer screening (Acute) Cervical polyp (Acute) History of uterine fibroid (Acute) Well woman exam with routine gynecological exam (Acute) Vaginitis (Acute) Annual physical exam (Acute) Fibroadenoma of breast (Acute) Breast mass, right (Acute) Hypovitaminosis D (Acute) Anemia (Acute) Breast mass (Acute) Depression (Acute) Mild asthma (Acute) Overweight (Acute) Past Medical History Medical History (Updated 09/06/22 @ 09:53 by Fran Negrete MD) Allergies Anemia Asthma Breast mass Breast mass, right Cervical cancer screening Chronic allergic rhinitis Depression Family history of breast cancer Fibroadenoma of breast Hypovitaminosis D Mild asthma Overweight Family History Family History Mother Asthma Hypertension Father Asthma Hypertension Maternal Grandmother Breast cancer Family/Other Breast cancer Surgical History Surgical History Gastric bypass status for obesity Hx laparoscopic cholecystectomy Hx of breast reduction, elective Hx of tubal ligation Social History Social History Housing: House Alcohol intake: never Patient Tobacco Use Status: Current someday Tobacco user Tobacco use type: Cigarette Cigarettes Per Day: 2 Use of substances other than those prescribed or required for medical reasons: No Are you DNR?: No Advance Directives: No Advance Directives Information Provided: Yes Recently lost weight without trying: No Nutrition Risks: No Nutritional Risk Current occupational status: employed Cognitive needs: No Hearing needs: No Vision needs: No Meds Allergies Allergy/AdvReac Type Severity Reaction Status Date / Time seafood Allergy Mild mild Verified 09/06/22 09:37 Home Medications Medication Instructions Recorded Confirmed Last Taken Type albuterol sulfate 2.5 mg/3 mL 2.5 mg inhalation Q4-6H PRN 11/02/21 09/27/22 Unknown History (0.083 %) solution for nebulization bronchospasm Exam Exam Date and Time: October 01, 2022 1003 Height,Weight and Vital Signs: Height 5 ft 4 in Weight 73.482 kg Assessment and Plan Assessment Anesthesia Assessment: Chart Reviewed Documented by User: Eric Cosme MD 10/02/22 10:37 [facility] Past Medical History Medical History (Updated 09/06/22 @ 09:53 by Fran Negrete MD) Allergies Anemia Asthma Breast mass Breast mass, right Cervical cancer screening Chronic allergic rhinitis Depression Family history of breast cancer Fibroadenoma of breast Hypovitaminosis D Mild asthma Overweight Family History Family History Mother Asthma Hypertension Father Asthma Hypertension Maternal Grandmother Breast cancer Family/Other Breast cancer Family history of problems with anesthesia: No Surgical History Surgical History Gastric bypass status for obesity Hx laparoscopic cholecystectomy Hx of breast reduction, elective Hx of tubal ligation History of Problems with Anesthesia: No Social History Social History Housing: House Alcohol intake: never Patient Tobacco Use Status: Current someday Tobacco user Tobacco use type: Cigarette Cigarettes Per Day: 2 Use of substances other than those prescribed or required for medical reasons: No Are you DNR?: No Advance Directives: No Advance Directives Information Provided: Yes Recently lost weight without trying: No Nutrition Risks: No Nutritional Risk Current occupational status: employed Cognitive needs: No Hearing needs: No Vision needs: No Meds Allergies Allergy/AdvReac Type Severity Reaction Status Date / Time seafood Allergy Mild mild Verified 09/06/22 09:37 Home Medications Medication Instructions Recorded Confirmed Last Taken Type albuterol sulfate 2.5 mg/3 mL 2.5 mg inhalation Q4-6H PRN 11/02/21 09/27/22 Unknown History (0.083 %) solution for nebulization bronchospasm Exam Airway Mallampati Class: I TM Dist: >3cm Neck ROM: Full Heart: ok Lungs: ok Assessment and Plan Assessment Anesthesia Assessment: Anesthesia Plan Discussed Final Anesthetic Review Family History of Problems with Anesthesia: No History of Problems with Anesthesia: No NPO: Yes ASA Class: II Final Preanesthetic Review: No Changes in Pt Med Stat, Meds/Allgs Chart Reviewed, Consent Obtained/Reviewed and Anes Risks/Benef Reviewed Patient Risk: Low Procedure Risk: Low Anesthetic Plan Anesthetic Plan: GA and Agree w/ Assess. and Plan Disposition: Standard PACU
[2022-10-02] VITALS (12 sets, daily range): BP systolic 100–129; BP diastolic 62–80; PULSE 45–58; RESP 12–18; TEMP 36.8–37.1; O2SAT 98–100
[2022-10-02] MEDS: Lactated Ringers 1,000 ML 100 ML IVCONT (08:47)
[2022-10-02] MEDS: Albuterol Sulfate (0.083%) 2.5 MG/3 ML VIAL.NEB INHALE (08:48)
--- NOTE | 2022-10-02 09:33 | MHC.SHP ---
Pre-Procedural Eval Section A Date of Service: 10/02/22 The patient is an INPATIENT: No Changes since office visit: No Cold of Flu in the past 2 weeks, No New Medical Problems, No Changes in Medication and No Patient answered all questions The History & Physical has been completed within 30 days and I have reviewed it.: Yes Section B Chief Complaint: history malignant neoplasm breast,benign neoplasm Allergies: Allergies Allergy/AdvReac Type Severity Reaction Status Date / Time seafood Allergy Mild mild Verified 09/06/22 09:37 Plan I have reviewed the history and physical and performed a pertinent physical examination on my patient. No changes have occurred unless specified. Time Spent With Patient Time: Total time managing care of this patient today ____ minutes.
--- NOTE | 2022-10-02 10:37 | P.OP_ITS ---
Operative Note Operative Note Date of Service: 10/02/22 Narrative: Preop diagnosis: Fibroadenoma, right breast Postop diagnosis: Fibroadenoma, about 4 cm in diameter, right breast Procedure: Excision of fibroadenoma, right breast Surgeon: Fran Negrete MD food and beverage assistant manager: RADHA Jordan The patient is a 47-year-old female with the right breast mass, with a previous biopsy showing a fibroadenoma. She this had increased in size. She was actually scheduled to have excision last year but she had canceled this. She understood the technique of excision under anesthesia. She was aware of the risks, benefits, and alternatives. She was brought to the operating room. She was placed supine under general anesthesia via laryngeal mask airway. The Right breast was prepped and draped in the usual sterile fashion. A surgical tie but was done. The patient received cefazolin 2 g IV preoperatively The mass was noted on the lateral aspect the right breast at around the clock position. This was very mobile, large, and well-defined. The patient was rotated to the left side to allow the right breast to fall medially and provide better exposure of the lateral aspect. I infiltrated the planned line of incision with lidocaine 1% using blade 15. This was carried down with electrocautery through the full-thickness of the skin breast tissue until was able to palpate for the breast mass. The breast mass was very mobile so it was a little bit difficult to dissect this. I was eventually able to apply it Allis clamp this in place. I proceeded to dissect around this mass using a combination of remains scissors as well as electrocautery. The mass was apache and very well-defined. I completed circumferential excision and was says sent as a specimen. The mass measured about 4 cm in diameter. I then examined the excision cavity. I cauterized oozing areas. Once hemostasis was confirmed, I proceeded to irrigate. I closed the deep tissue and subcutaneous layers with Polysorb 3-0 interrupted sutures. Skin closure was achieved with a Polysorb no subcuticular running stitch. The area was infiltrated with Marcaine 0.5% for postop analgesia. Steri-Strips and dressings were applied and the procedure was completed The patient tolerated procedure well. There were no immediate complications. Initial and final counts of sponges and instruments were correct. Estimated blood loss was about 5 cc. The patient was extubated without difficulty and transferred to the recovery room with stable vital signs.
== END 2022-10-02 14:12 | disposition home or self-care (01) ==
PROVIDERS: PCP Internal Medicine; Visit Provider Surgery
PROC: (CPT 19120; principal; 2022-10-02 10:20)
DX: D24.1 Benign neoplasm of right breast (principal); Z80.3 Family history of malignant neoplasm of breast; D64.9 Anemia, unspecified; E55.9 Vitamin D deficiency, unspecified; J45.909 Unspecified asthma, uncomplicated; Z79.51 Long term (current) use of inhaled steroids; Z79.899 Other long term (current) drug therapy; F32.A Depression, unspecified; E66.3 Overweight; Z68.27 Body mass index [BMI] 27.0-27.9, adult; Z98.84 Bariatric surgery status; Z90.49 Acquired absence of other specified parts of digestive tract; Z98.51 Tubal ligation status; Z98.890 Other specified postprocedural states; F17.210 Nicotine dependence, cigarettes, uncomplicated
CPT/HCPCS: 19120; 88305; 94640; J0690; J1885; J2405; J2795; J3010

== ENCOUNTER → 2022-10-15 15:51 | Outpatient (BNVA) | payer OTHER, SELFPAY | PROVIDERS: PCP Internal Medicine; Visit Provider Surgery | DX: Z48.3 Aftercare following surgery for neoplasm (principal); D24.2 Benign neoplasm of left breast | CPT/HCPCS: 99212 ==

== ENCOUNTER 2022-11-01 12:47 | Outpatient (REF) | payer OTHER, SELFPAY | END 2022-11-01 12:48 | disposition home or self-care (01) | LOC: HO.LNP 12:47 | PROVIDERS: PCP Internal Medicine; Visit Provider Obstetrics & Gynecology | DX: N84.1 Polyp of cervix uteri (principal); R68.82 Decreased libido | CPT/HCPCS: 57500; 88305 ==

== ENCOUNTER 2023-05-04 09:08 | Outpatient (AMB) | payer OTHER, SELFPAY ==
--- NOTE | 2023-05-04 09:17 | MHC.OFFWIV ---
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 Patient Tobacco Use Status: Current someday Tobacco user Allergies seafood Allergy (Mild, Verified 05/04/23 09:18) mild Do you need a note to return to daycare/school/sports/work: No HPI HPI Comments History of Present Illness Details 47-year-old female presents for work related physical. [facility] Medical History Allergies Anemia Asthma Breast mass Breast mass, right Cervical cancer screening Chronic allergic rhinitis Depression Family history of breast cancer Fibroadenoma of breast Hypovitaminosis D Mild asthma Overweight Surgical History Gastric bypass status for obesity Hx laparoscopic cholecystectomy Hx of breast reduction, elective Hx of tubal ligation S/P excision of fibroadenoma of breast Family History Mother Asthma Hypertension Father Asthma Hypertension Maternal Grandmother Breast cancer Family/Other Breast cancer Housing: House Alcohol intake: never Patient Tobacco Use Status: Current someday Tobacco user Tobacco use type: Cigarette Cigarettes Per Day: 2 Current occupational status: employed Cognitive needs: No Hearing needs: No Vision needs: No Female Reproductive History Menstrual Age of Menarche: 14 Review of Systems Const Details: Constitutional: No Weight loss, No Fever, No Chills, No Night Sweats, No Fatigue, No Malaise ENT/Mouth: No Hearing loss, No Ear Pain, No Nasal Congestion, No Sinus Pain, No Hoarseness, No sore throat, No Rhinorrhea, No Swallowing Difficulty Eyes: No Eye Pain, No Swelling, No Redness, No Foreign Body, No Discharge, No Vision Changes Cardiovascular: No Chest Pain, No SOB, No Dyspnea on Exertion, No Orthopnea, No Edema, No Palpitations Respiratory: No Cough, No Sputum, No Wheezing, No Smoke Exposure, No Dyspnea Gastrointestinal: No Nausea, No Vomiting, No Diarrhea, No Constipation, No abdominal Pain, No Hematochezia, No Melena Genitourinary: no irregular bleeding, No Dysuria, No Urinary Frequency, No Hematuria, No Urinary Incontinence, No Urgency, No Flank Pain, No Urinary Flow Changes, No Hesitancy Musculoskeletal: No joint pain, No Myalgias, No Joint Swelling Skin: No Skin Lesions, No rash Neuro: No Weakness, No Numbness, No Paresthesias, No Loss of Consciousness, No Dizziness, No Headache Psych: No Anxiety/Panic, No Depression, No SI/HI/AH/VH, No Social Issues Heme/Lymph: No Bruising, No Bleeding,No Lymphadenopathy Endocrine: No Polyuria, No Polydipsia, No Temperature Intolerance All systems reviewed & are unremarkable except as noted in HPI and below Physical Exam Vital Signs: Last Vital Signs Temp 97.9 F 05/04/23 09:18 Pulse 73 05/04/23 09:18 BP 100/60 05/04/23 09:18 Pulse Ox 99 05/04/23 09:18 Oxygen Delivery Method Room Air 05/04/23 09:18 BMI result Body Mass Index 29.4 Appearance: Alert. Oriented X3. No acute distress. Head: Normal external exam. Normocephalic. Atraumatic. No De Oliveira signs noted. No raccoon eyes noted Eyes: PERRLA. EOMI. Conjunctiva and sclera normal. Eyelids normal. ENT: TM's Normal. Pharynx normal. Uvula midline. Moist mucous membranes. No trismus noted. No drooling noted. No muffled voice noted. Neck: Normal inspection. Neck supple. No adenopathy. Thyroid Normal. No meningeal signs. No neck mass noted. CVS: Normal heart rate and rhythm. Heart sound normal. No murmurs noted. Pulses equal to all extremities. Respiratory: No respiratory distress. Painless inspiration. Breath sounds normal. No wheezes/rales/rhonchi noted. Chest nontender. No accessory muscle usage noted or decreased air movement noted. Abdomen: Soft and nontender. Bowel sounds normal in all 4 quadrants. No distention noted. No organomegaly noted. No visible injury noted. Back: No CVA tenderness. Full range of motion noted. Skin: Skin warm and dry. Normal skin color. Normal skin turgor. No rashes/lesions/lacerations noted. Extremities: No lower extremity edema. Extremities exhibit normal range of motion. Extremities nontender. Neuro: cranial nerves 2-12 intact, no focal neural deficits, strength 5/5 to all extremities, No motor deficit. No sensory deficit. Reflexes normal. Assessment & Plan Assessment & Plan (1) Physical exam, pre-employment: Code(s): Z02.1 - Encounter for pre-employment examination Plan: 47-year-old female, well developed, well nourished, healthy, past medical history asthma and GERD presents for work related physical. 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 Patient verbalized understanding of discharge instructions. Verbalized understandings of signs and symptoms indicating need for emergent intervention. Patient Instructions: You were evaluated for work related physical. Thank you for choosing this urgent care for evaluation. Please follow-up with primary care physician as needed. Return to the emergency department for any new, concerning, or worsening symptoms. Coding Level of Care Code Est Pt Level 3 (97142) Diagnoses Physical exam, pre-employment Z02.1
[2023-05-04 09:18] VITALS: BP 100/60; PULSE 73; TEMP 36.6; O2SAT 99; BMI 29.4
== END 2023-05-04 09:54 | disposition home or self-care (01) ==
PROVIDERS: PCP Internal Medicine; Visit Provider Nurse Practitioner Family
DX: Z02.1 Encounter for pre-employment examination (principal)
CPT/HCPCS: 99051; 99213

== ENCOUNTER 2023-06-27 13:29 | Outpatient (AMB) | payer OTHER, SELFPAY ==
[2023-06-27 13:31] VITALS: BP 126/82; BMI 28.3
--- NOTE | 2023-06-27 13:31 | MHC.PC.OV ---
Vital Signs 06/27/23 13:31 Height 5 ft 3 in Weight 160 lb BMI 28.3 BP 126/82 Blood Pressure Location Lt brachial Position Sitting Intake Visit Reasons: ? states go over something with PCP Intake Note: Discussion with PCP, ? uti Change House Attendant Required: No Accompanied by: Self / Same As Patient Allergies seafood Allergy (Mild, Verified 06/27/23 13:48) mild Medication List - Last Reconciled 06/27/23 by Viridiana Mendoza MD albuterol sulfate 90 mcg/actuation 2 puffs inhalation Q4-6H PRN 30 days albuterol sulfate 2.5 mg inhalation Q4-6H PRN budesonide 0.5 mg (2 mL) inhalation BID 30 days budesonide-formoterol 160-4.5 mcg/actuation (Symbicort) 2 puffs inhalation BID 30 days ergocalciferol (vitamin D2) 1,250 mcg PO QWEEK 90 days fluticasone propionate 110 mcg/actuation (Flovent HFA) 1 puff inhalation Q12H 30 days [Knee scooter As directed] omeprazole 20 mg PO DAILY 90 days Tobacco use date assessed: 06/27/23 Dental Screening Dental Screen Date: 06/27/23 Did you have a dental visit in the last 12 months?: No Did you have a dental problem in the last 6 months where you did not have access to dental care?: No Was dental information given to patient?: Patient has dentist HPI HPI Comments History of Present Illness Details This is a 47-year-old female with chronic GERD and mild asthma that complains of dysuria that started few days ago associated with foul smell of urine and vaginal itchiness. Had nitrites positive in urinalysis. I will start her on antibiotic and fluconazole for the vaginal itching. Patient is aware that if vaginal itchiness happen again she will have to call OBGYN. She usually has persistent headaches about 3 times a week that started about 2 months ago in the frontal area usually associated with blurry vision and bilateral eye pain. No neurological deficit associated with it. Will order MRI of the brain and start her on Topamax for migraine prophylaxis. Patient was aware that Topamax can cause sleepiness, paresthesias and forgetfulness. Will give sumatriptan as needed for acute headache. Complains of loss of libido that has been present for a year. GERD stable with medications. Asthma stable with long-acting inhaler. [facility] Medical History (Updated 06/27/23 @ 14:25 by Viridiana Mendoza MD) Family history of breast cancer Chronic allergic rhinitis Allergies Asthma Cervical cancer screening Fibroadenoma of breast Breast mass, right Hypovitaminosis D Anemia Breast mass Depression Mild asthma Overweight Surgical History S/P excision of fibroadenoma of breast Hx of tubal ligation Hx laparoscopic cholecystectomy Gastric bypass status for obesity Hx of breast reduction, elective Family History (Updated 06/27/23 @ 13:37 by FELIPE Lewis) Mother Asthma Hypertension Father Asthma Hypertension Maternal Grandmother Breast cancer Family/Other Breast cancer Social History Housing: House Alcohol intake: never Patient Tobacco Use Status: Current someday Tobacco user Tobacco use type: Cigarette Cigarettes Per Day: 2 e-Cigarette/Vaping Use: Never Used Second Hand Smoke Exposure: No service: No Current occupational status: employed Current occupational exposures/hazards: No Cognitive needs: No Hearing needs: No Vision needs: Yes Female Reproductive History Menstrual Age of Menarche: 14 Questionnaire PHQ-9 Over the last 2 weeks, how often have you been bothered by any of the following problems? 1. Little interest or pleasure in doing things: not at all 2. Feeling down, depressed, or hopeless: more than half the days 3. Trouble falling or staying asleep, or sleeping too much: more than half the days 4. Feeling tired or having little energy: more than half the days 5. Poor appetite or overeating: nearly every day 6. Feeling bad about yourself - or that you are a failure or have let yourself or your family down: not at all 7. Trouble concentrating on things, such as reading the newspaper or watching television: not at all 8. Moving or speaking so slowly that other people could have noticed. Or the opposite - being so fidgety or restless that you have been moving around a lot more than usual: not at all 9. Thoughts that you would be better off or of hurting yourself in some way: not at all Total score: 9 Depression Screening Interpretation: Positive Depression Screening Follow-up: Existing condition Depression Screening Done: Yes 32523 - PHQ-9 Billing: Yes Source: Developed by Drs. Varinder More, Cecy Conde, Vu Vaughn and colleagues, with an educational britton from [employer]. Thrive Questionnaire Date Thrive assessed: 06/27/23 I am a: Patient What is your living situation today?: I have a steady place to live Within the past 12 months, did the food you bought not last and you didn't have the money to get more?: Never true Within the past 12 months, did you worry whether your food would run out before you got money to buy more?: Never true Do you have trouble paying for medicines?: No Do you have trouble getting transportation to medical appointments?: No Do you have trouble paying your heating and electricity bill?: No Do you have trouble taking care of your child, family member or friend?: No Do you have trouble with day-to-day activities such as bathing, preparing meals, shopping, managing finances, etc.?: No Are you currently unemployed and looking for a job?: No Are you interested in more education?: No Please select the resources that you would like help with: None Currently or been in a relationship where the following occur: no concerns reported AUDIT C Alcohol Use Questionnaire (AUDIT-C) 1. How often do you have a drink containing alcohol?: Monthly or less 2. How many drinks containing alcohol do you have on a typical day when you are drinking?: 1 or 2 3. How often do you have six or more drinks on one occasion?: Never Total Score: 1 SUSAN-7 AMB Questionnaire SUSAN-7 Date SUSAN - 7 assessed: 06/27/23 Feeling nervous, anxious, or on edge: 1 = Several days Not being able to stop or control worryin = Not at all Worrying too much about different things: 1 = Several days Trouble relaxin = Not at all Being so restless that it is hard to sit still: 0 = Not at all Becoming easily annoyed or irritable: 2 = More than half the days Feeling afraid as if something awful might happen: 0 = Not at all Total SUSAN-7 score (0-4 normal; 5-9 mild; 10-14 moderate; 15-21 severe): 4 Source: Developed by Drs. Varinder More, Cecy Conde, Vu Vaughn and colleagues, with an educational britton from [employer]. SUSAN-7 Assessment Billing SUSAN-7 Assessment Tool: SUSAN-7 Assessment 52666 Review of Systems Const All systems reviewed & are unremarkable except as noted in HPI and below Eyes Reports no additional complaints, Denies change in vision and Denies other visual disturbances Card Denies chest pain at rest, Denies chest pain with activity, Denies edema, Denies irregular heart rhythm, Denies claudication, Denies dyspnea, Denies dyspnea on exertion, Denies orthopnea, Denies paroxysmal nocturnal dyspnea and Denies slow heart rate Resp Denies cough, Denies dyspnea and Denies dyspnea on exertion GI Denies abdominal pain, Denies change in bowel habits, Denies excessive flatus, Denies nausea and Denies vomiting Denies urinary incontinence, Denies urinary hesitancy and Denies urinary urgency Musc Denies abnormal gait, Denies atrophy, Denies deformity and Denies limited range of motion Skin/Breast Denies bleeding lesions, Denies changing lesions and Denies rash Neuro Denies abnormal gait and Denies lack of coordination Physical exam (Primary Care) Vital Signs: Last Vital Signs BP 126/82 06/27/23 13:31 BMI result Body Mass Index 28.3 Tobacco/Smoking Status: Tobacco use Status Tobacco use date assessed 06/27/23 06/27/23 13:43 Patient Tobacco Use Status Current someday Tobacco 06/27/23 13:43 Tobacco use type Cigarette 06/27/23 13:43 e-Cigarette/Vaping Use Never Used 06/27/23 13:43 PHQ-9: PHQ-9 Score PHQ-9: Total score 9 06/27/23 14:10 Depression Screening Interpretation: Positive Depression Screening Follow-up: Existing condition Thrive Assessment: Date of Thrive Assessment Date Thrive assessed 06/27/23 06/27/23 13:43 Currently or been in a relationship where the following occur: no concerns reported Eyes General: appearance normal, both eyes and all related structures Eyelids: Yes eyelids normal Conjunctivae: conjunctivae normal Neck Neck: Yes normal visual inspection and Yes supple Resp Effort & Inspection: normal respiratory effort Auscultation: clear to auscultation bilaterally Cardio Jugular venous distension: no JVD Rate: regular rate Rhythm: regular rhythm Heart sounds: S1 normal heart sound present and S2 normal heart sound present Extrem General: Yes full ROM Office Procedures Flu Questionnaire Does the patient have a severe egg allergy?: No Results AMB Urinalysis, Automated UA Leukoctes 0 Sissy/uL Last Edit by FELIPE Lewis on 06/27/23 13:49 UA Nitrite Positive Last Edit by Rahul Holland, A on 06/27/23 13:49 UA Urobilinogen 0.2 mg/dL Last Edit by Rahul Holland, A on 06/27/23 13:49 UA Protein 0 mg/dL Last Edit by Rahul Holland, A on 06/27/23 13:49 UA pH 6.0 Last Edit by Rahul Holland, [facility] on 06/27/23 13:49 UA Blood 0 Sourav/uL Last Edit by Rahul Holland, A on 06/27/23 13:49 UA Specific [place] 1.030 Last Edit by Rahul Holland Nilo on 06/27/23 13:49 UA Ketone Negative Last Edit by Rahul Holland, [facility] on 06/27/23 13:49 UA Bilirubin 0 mg/dL Last Edit by Rahul Holland, [facility] on 06/27/23 13:49 UA Glucose 0 mg/dL Last Edit by Rahul Holland [facility] on 06/27/23 13:49 Immunizations flu vacc [id number] 6mos up(PF) 60 mcg(15 mcgx4)/0.5 mL IM syringe Performing Provider: Viridiana Mendoza MD [facility] Documented (not given) by: FELIPE Lewis on 06/27/23 14:10 Reason Not Given: Not Given Results Reviewed Results Reviewed: Laboratory Last Values Urine pH (Auto) 6.0 06/27/23 13:46 Specific [place] (Auto) 1.030 06/27/23 13:46 Urine Protein (Auto) 0 mg/dL 06/27/23 13:46 Glucose (UA)(Auto) 0 mg/dL 06/27/23 13:46 Urine Ketones (Auto) Negative 06/27/23 13:46 Urine Blood (Auto) 0 Sourav/uL 01/18/24 13:46 Urine Nitrite (Auto) Positive 06/27/23 13:46 Urine Bilirubin (Auto) 0 mg/dL 06/27/23 13:46 Urine Urobilinogen (Auto) 0.2 mg/dL 06/27/23 13:46 Leukocyte Esterase (Auto) 0 Sissy/uL 06/27/23 13:46 Assessment and Plan Assessment & Plan (1) Persistent headaches: Code(s): R51.9 - Headache, unspecified Plan: MRI of the brain ordered. Use sumatriptan as needed for headache. Use Topamax daily for migraine prophylaxis. (2) UTI (urinary tract infection): Code(s): N39.0 - Urinary tract infection, site not specified Plan: Start Bactrim. (3) Mild asthma: Code(s): J45.909 - Unspecified asthma, uncomplicated Qualifiers: Asthma persistence: persistent Asthma complication type: uncomplicated Qualified Code(s): J45.30 - Mild persistent asthma, uncomplicated Plan: Use rescue inhaler as needed. Continue long-acting inhaler. (4) Chronic GERD: Code(s): K21.9 - Gastro-esophageal reflux disease without esophagitis Plan: Continue PPIs. Orders: Orders AMB Urinalysis Automated Today R30.0 - Dysuria Influenza [id number] Immunization Today Z23 - Encounter for immunization MR head/brain wo con Today R51.9 - Headache, unspecified Medications: New fluconazole may repeat second dose 72 hrs after first dose if symptoms persist 150 mg PO Q3D 2 tabs 0RF topiramate 25 mg PO BEDTIME 30 days 30 tabs 1RF sulfamethoxazole-trimethoprim 800-160 mg (Bactrim DS) 1 tab PO BID 3 days 6 tabs 0RF sumatriptan succinate do not exceed 8 doses per 24 hrs 25 mg PO Q2-4H 30 days PRN 9 tabs 2RF migraine headache Refilled ergocalciferol (vitamin D2) 1,250 mcg PO QWEEK 90 days 13 caps 0RF E55.9 - Vitamin D deficiency, unspecified albuterol sulfate 90 mcg/actuation 2 puffs inhalation Q4-6H 30 days PRN 6.7 grams 6RF bronchospasm J45.909 - Unspecified asthma, uncomplicated fluticasone propionate 110 mcg/actuation (Flovent HFA) 1 puff inhalation Q12H 30 days 12 grams 6RF J45.909 - Unspecified asthma, uncomplicated budesonide-formoterol 160-4.5 mcg/actuation (Symbicort) 2 puffs inhalation BID 30 days 10.2 grams 11RF J44.9 - Chronic obstructive pulmonary disease, unspecified Coding Level of Care Code Est Pt Level 4 (06045) Diagnoses Persistent headaches R51.9 UTI (urinary tract infection) N39.0 Mild persistent asthma without complication J45.30 Asthma persistence: persistent Asthma complication type: uncomplicated Chronic GERD K21.9 Additional Codes SUSAN-7 Assessment Billing - SUSAN-7 Assessment Tool: SUSAN-7 Assessment 28278 ([id number]) Time Spent (min) 25
== END 2023-06-27 14:05 | disposition home or self-care (01) ==
PROVIDERS: PCP Internal Medicine; Visit Provider Internal Medicine
DX: R51.9 Headache, unspecified (principal); N39.0 Urinary tract infection, site not specified; J45.30 Mild persistent asthma, uncomplicated; K21.9 Gastro-esophageal reflux disease without esophagitis
CPT/HCPCS: 81003; 99214

== ENCOUNTER 2023-08-06 07:20 | Outpatient (REF) | payer OTHER, SELFPAY ==
--- NOTE | ~2023-08-06 | MR_ITS ---
EXAMINATION: MR BRAIN WITHOUT CONTRAST CLINICAL INFORMATION: 48-year-old with headache, unspecified. COMPARISON: None available. TECHNIQUE: MRI of the brain was obtained using routine sequences without contrast. FINDINGS: Brain Volume: Within normal limits within the limitations of qualitative assessment. Structural: 3 mm of cerebellar tonsillar ectopia noted at the foramen magnum, consistent with a normal variant. No definite features to suggest Chiari I malformation. Brain and Meninges: DWI sequence demonstrates no restricted diffusion to suggest acute or subacute cerebral ischemia. The brain is normal in morphology. Note is made of a 6.5 mm T2 hyperintense lesion in the deep periventricular white matter of the right posterior wiggins radiata, which is faintly T1 hypointense and is a nonspecific finding. There are faint patchy zones of FLAIR signal hyperintensity in the occipital lobe white matter bilaterally, which are also nonspecific. The remainder of the brain is normal in signal intensity. Gradient refocused imaging demonstrates no abnormal susceptibility-weighted signal loss to suggest hemorrhage, hemosiderin staining or abnormal mineralization. No extra-axial fluid collections, space-occupying process or mass effect are identified. Ventricles and Subarachnoid Spaces: The ventricular system and subarachnoid spaces are within normal range; there is no hydrocephalus. Orbital Structures: The visualized orbital structures are grossly unremarkable within the limitations of the study. Vascular: Signal voids are noted in the visualized major intracranial vessels. Osseous Structures, Sinuses/Mastoids, Extracranial Soft Tissues: Osseous marrow signal intensity is within normal limits. There are air-fluid levels in the maxillary sinuses bilaterally, left more than right, with mucosal thickening in the anterior ethmoid complex and left maxillary sinus. Correlate for any evidence of sinusitis. MR/MR head/brain wo con IMPRESSION: 1. Nonspecific deep right periventricular white matter lesion and possible faint patchy zones of white matter T2 hyperintensity in the occipital lobe white matter bilaterally. Etiology uncertain. Suggest neurology consult and followup MRI of the brain without and with contrast to reassess at a clinically appropriate interval. 2. Paranasal sinus inflammatory changes with fluid levels in the maxillary sinuses. Correlate for any evidence of sinusitis. 3. No evidence for intracranial hemorrhage, extra-axial fluid collection, subacute or acute infarct, space-occupying process, mass effect or hydrocephalus.
== END 2023-08-06 07:21 | disposition home or self-care (01) ==
LOC: HO.MRI 07:20
PROVIDERS: PCP Internal Medicine; Visit Provider Internal Medicine
DX: R51.9 Headache, unspecified (principal)
CPT/HCPCS: 70551

== ENCOUNTER 2023-08-14 15:40 | Outpatient (REF) | payer OTHER, SELFPAY ==
--- NOTE | ~2023-08-14 | MR_ITS ---
EXAMINATION: MR BRAIN WITHOUT AND WITH CONTRAST CLINICAL INFORMATION: Follow-up white matter disease on prior brain MRI. COMPARISON: Brain MRI 08/06/2023. TECHNIQUE: Multiplanar MR imaging of the brain was performed without and with contrast. A total of 7 mL Gadavist was utilized for this examination. FINDINGS: Again there is a small nonspecific white matter lesion located within the right periventricular white matter on axial image 16 of 25 series 4. No pathological intraparenchymal enhancement is visualized on postcontrast images. No abnormal mass or enhancement visualized elsewhere within the intracranial compartment. There is no intracranial mass effect or midline shift. Lateral and third ventricles are normal. No hydrocephalus. Midline structures including the cervicomedullary junction are normal. No acute bone marrow signal changes. There is no mastoid or middle ear effusion. No active paranasal sinus disease. MR/MR head/brain wo/w con IMPRESSION: Again there is a small nonspecific white matter lesion located within the right periventricular white matter. No associated pathological enhancement demonstrated on postcontrast imaging there is no abnormal intracranial enhancement visualized elsewhere within the intracranial compartment. No infratentorial white matter disease.
[2023-08-14] MEDS: gadobutroL 7.5 ML VIAL IVPUSH (16:48)
== END 2023-08-14 15:41 | disposition home or self-care (01) ==
LOC: HO.MRI 15:40
PROVIDERS: Visit Provider Internal Medicine
DX: R90.89 Other abnormal findings on diagnostic imaging of central nervous system (principal)
CPT/HCPCS: 70553; A9585

== ENCOUNTER 2023-08-30 09:12 | Outpatient (AMB) | payer OTHER, SELFPAY ==
--- NOTE | 2023-08-30 09:30 | AM.OFFWIN_ITS ---
Intake Vital Signs 08/30/23 09:32 Weight 155 lb BP 122/78 Blood Pressure Location Rt brachial Position Sitting Pulse 55 Pulse Source Pulse Oximeter Temp 97.9 F Temp Source Oral Pulse Oximetry (%) 98 Oxygen Delivery Method Room Air Intake Visit Reasons: EP vomiting loose stools (lobby) Intake Note: Patient here for headache, stomach pain, nausea and diarrhea which has been going on since saturday. Patient Tobacco Use Status: Current someday Tobacco user Allergies seafood Allergy (Mild, Verified 08/30/23 09:33) mild Do you need a note to return to daycare/school/sports/work: Yes HPI HPI Comments History of Present Illness Details 48 y/o female patient who presents to [facility] in clinic with c/o nausea, vomiting, diarrhea, and headaches. Denies any changes to her Diet. Denies fevers or chills. Denies vaginal or bladder symptoms. [facility] Medical History Family history of breast cancer Chronic allergic rhinitis Allergies Asthma Cervical cancer screening Fibroadenoma of breast Breast mass, right Hypovitaminosis D Anemia Breast mass Depression Mild asthma Overweight Surgical History S/P excision of fibroadenoma of breast Hx of tubal ligation Hx laparoscopic cholecystectomy Gastric bypass status for obesity Hx of breast reduction, elective Family History (Updated 06/27/23 @ 13:37 by FELIPE Lewis) Mother Asthma Hypertension Father Asthma Hypertension Maternal Grandmother Breast cancer Family/Other Breast cancer Social History Housing: House Alcohol intake: never Patient Tobacco Use Status: Current someday Tobacco user Tobacco use type: Cigarette Cigarettes Per Day: 2 e-Cigarette/Vaping Use: Never Used Second Hand Smoke Exposure: No service: No Current occupational status: employed Current occupational exposures/hazards: No Cognitive needs: No Hearing needs: No Vision needs: Yes Female Reproductive History Menstrual Age of Menarche: 14 Review of Systems Const All systems reviewed & are unremarkable except as noted in HPI and below Physical Exam Vital Signs: Last Vital Signs Temp 97.9 F 08/30/23 09:32 Pulse 55 08/30/23 09:32 BP 122/78 08/30/23 09:32 Pulse Ox 98 08/30/23 09:32 Oxygen Delivery Method Room Air 08/30/23 09:32 Const General: comfortable and no acute distress Orientation/consciousness: patient oriented x3 HEENT Head: Yes normocephalic Ears: external ears normal and TM's normal bilaterally General nose exam: Normal nasal mucous membranes and turbinates present Face and sinus: Yes sinuses nontender Mouth: moist mucous membranes Throat: Yes posterior oropharynx normal Resp Effort & Inspection: normal respiratory effort and able to speak in complete sentences Auscultation: clear to auscultation bilaterally, no crackles, no rales, no rhonchi and no wheezes Cardio Rate: regular rate Rhythm: regular rhythm GI Inspection: Yes normal to inspection, No Abdominal wall edema and No distended Palpation (GI): not soft, not firm, Tenderness to palpation present (GI) in the epigastrum, no guarding, not rigid and No hepatosplenomegaly present Auscultation: normal bowel sounds Rectal Exam - Female: deferred Neuro General: patient oriented x3, gait normal and moves all extremities Psych Speech and movement: Normal speech and movement present Assessment & Plan Assessment & Plan (1) Nausea vomiting and diarrhea: Code(s): R11.2 - Nausea with vomiting, unspecified; R19.7 - Diarrhea, unspecified Plan: - BLAND diet - Rest and hydrate well - Avoid Spicy foods - Avoid Oily, greasy foods. Plan - BLAND diet - Rest and hydrate well - Avoid Spicy foods - Avoid Oily, greasy foods. Medications: New ondansetron 8 mg PO Q8H 30 tabs 0RF R11.2 - Nausea with vomiting, unspecified, R19.7 - Diarrhea, unspecified metoclopramide HCl (Reglan) 10 mg PO Q6H PRN 30 tabs 0RF nausea and vomiting R11.2 - Nausea with vomiting, unspecified, R19.7 - Diarrhea, unspecified Discontinued fluconazole may repeat second dose 72 hrs after first dose if symptoms persist Discontinued Reason: Patient Completed Course 150 mg PO Q3D 2 tabs 0RF Coding Level of Care Code Est Pt Level 3 (23032) Diagnoses Nausea vomiting and diarrhea R11.2; R19.7 Time Spent (min) 15
[2023-08-30 09:32] VITALS: BP 122/78; PULSE 55; TEMP 36.6; O2SAT 98
== END 2023-08-30 10:29 | disposition home or self-care (01) ==
PROVIDERS: PCP Internal Medicine; Visit Provider Nurse Practitioner Family
DX: R11.2 Nausea with vomiting, unspecified (principal); R19.7 Diarrhea, unspecified
CPT/HCPCS: 99213

== ENCOUNTER 2023-11-06 09:35 | Outpatient (AMB) | payer OTHER, SELFPAY ==
--- NOTE | 2023-11-06 09:35 | A.OFFVIS_ITS ---
Vital Signs 11/06/23 09:46 Height 5 ft 3 in Weight 154 lb 6 oz BMI 27.3 BP 120/74 Blood Pressure Location Rt brachial Position Sitting Pulse 54 Pulse Source Pulse Oximeter Pulse Oximetry (%) 100 Oxygen Delivery Method Room Air Intake Visit Reasons: INP: Abnormal findings on diagnostic img - Conf Intake Note: Patient presents for abnormal findings on diagnostic imaging. Wants to know what the findings are Allergies seafood Allergy (Mild, Verified 11/06/23 09:41) mild Medication List - Last Reconciled 11/06/23 by Jenae Rosales MD albuterol sulfate 90 mcg/actuation 2 puffs inhalation Q4-6H PRN 30 days albuterol sulfate 2.5 mg inhalation Q4-6H PRN budesonide 0.5 mg (2 mL) inhalation BID 30 days ergocalciferol (vitamin D2) 1,250 mcg PO QWEEK 90 days magnesium oxide 400 mg PO BEDTIME omeprazole 20 mg PO DAILY 90 days riboflavin (vitamin B2) 400 mg PO QAM sumatriptan succinate 50 mg PO Q2-4H PRN 30 days topiramate 1 tab qam and 2tabs qhs orally; 30 days HPI Comments Details: 48y/o left handed female comes for neurological evaluation she had MRI brain done 2 months ago for persistent headaches. MRI-there is a small nonspecific white matter lesion located within the right periventricular white matter. No associated pathological enhancement demonstrated on postcontrast imaging there is no abnormal intracranial enhancement visualized elsewhere within the intracranial compartment. No infratentorial white matter disease she denies any weakness, numbness, double vision , blurry vision, vertigo. She reports headaches that starts in her posterior neck and radiates to the parietal region It started 15 yrs ago worse in the past 3 years. she has photophobia, phonophobia, numbness in her fingers , neck pain ,eye pain, dizziness, nausea. It starts as a mild pounding headaches and worsens over time It is associate dwith visual aura- sees flashing lights she was taking ibuprofen and tylenol which did not help. she has 3-4 headaches a week It can last 2- 24 hrs she was started on topiramate and sumatriptan. sumatriptan 50mg helps she has not noticed a decrease in headaches with topiramate.she has missed 5-6 days of work in the past 6 months due to headaches PFSH Medical History (Updated 11/06/23 @ 10:12 by Jenae Rosales MD) Chronic migraine with aura Family history of breast cancer Chronic allergic rhinitis Allergies Asthma Cervical cancer screening Fibroadenoma of breast Breast mass, right Hypovitaminosis D Anemia Breast mass Depression Mild asthma Overweight Surgical History S/P excision of fibroadenoma of breast Hx of tubal ligation Hx laparoscopic cholecystectomy Gastric bypass status for obesity Hx of breast reduction, elective Family History Mother Asthma Hypertension Father Asthma Hypertension Cancer Maternal Grandmother Breast cancer Family/Other Breast cancer Social History Housing: House Alcohol intake: never Patient Tobacco Use Status: Current someday Tobacco user Tobacco use type: Cigarette Cigarettes Per Day: 2 e-Cigarette/Vaping Use: Never Used Second Hand Smoke Exposure: No service: No Current occupational status: employed Current occupational exposures/hazards: No Cognitive needs: No Hearing needs: No Vision needs: Yes Female Reproductive History Menstrual Age of Menarche: 14 Physical Exam Vital Signs: Last Vital Signs Pulse 54 11/06/23 09:46 BP 120/74 11/06/23 09:46 Pulse Ox 100 11/06/23 09:46 Oxygen Delivery Method Room Air 11/06/23 09:46 BMI result Body Mass Index 27.3 Const General: cooperative, healthy appearing, comfortable and no acute distress Nutritional Appearance: average body habitus Orientation/consciousness: patient oriented x3 Limitations: no limitations Eyes Pupils: Equal, round and reactive pupils present Neuro General: patient oriented x3, gait normal, tone normal, moves all extremities and no focal motor deficits Cranial nerves: Yes Facial sensation intact/muscles of mastication intact, Yes Equal, round and reactive pupils present, Yes Bilaterally intact EOM present, Yes Nystagmus not present, Yes Normal facial strength present, Yes Midline tongue present, Yes Symmetric palate elevation present and Yes Ability to bilaterally elevate shoulders present Cognition (Neuro): normal cognition Gait exam (Neuro): Normal gait present Motor exam (neuro): 5/5 motor strength present throughout and Normal motor muscle tone present throughout Deep tendon reflexes (DTR's): Right triceps reflex intensity grade: 2+, Left triceps reflex intensity grade: 2+, Rt Biceps (C5, C6): 2+, Left biceps reflex intensity grade: 2+, Right brachioradialis reflex intensity grade: 2+, Left brachioradialis reflex intensity grade: 2+, Right patellar reflex intensity grade: 2+, Left patellar reflex intensity grade: 2+, Right ankle reflex intensity grade: 2+ and Left ankle reflex intensity grade: 2+ Coordination: [id number] test normal Quality Reporting (2019) Adult ([facility] 138/08/01/68) Smoking risk assessment performed?: Yes Patient Tobacco Use Status: Current someday Tobacco user Results Reviewed Results Reviewed: MRI BRain with juan There is a small nonspecific white matter lesion located within the right periventricular white matter. No associated pathological enhancement demonstrated on postcontrast imaging there is no abnormal intracranial enhancement visualized elsewhere within the intracranial compartment. No infratentorial white matter disease Assessment & Plan Assessment & Plan (1) Chronic migraine with aura: Code(s): G43.E09 - Chronic migraine with aura, not intractable, without status migrainosus Category: Medical (2) Abnormal brain MRI: Comment: nonspecific right periventricular white matter lesion Code(s): R90.89 - Other abnormal findings on diagnostic imaging of central nervous system Category: Medical Plan Increase topiramate to 25 mg qam and 50 mg qhs Continue sumatriptan 50mg as needed for migraines Start riboflavin ( Vit B 2 ) 400mg qam Magnesium 400mg qhs Migraine diary Abnormal finding on the MRI is nonspecific - will follow up clinically Medications: New riboflavin (vitamin B2) 400 mg PO QAM 30 tabs 6RF magnesium oxide 400 mg PO BEDTIME 30 caps 6RF Changed From topiramate 25 mg PO BEDTIME 30 days 30 tabs 1RF To topiramate 1 tab qam and 2tabs qhs orally; 30 days 90 tabs 2RF Coding Level of Care Code New Pt Level 4 (45066) Diagnoses Chronic migraine with aura G43.E09 Abnormal brain MRI R90.89
[2023-11-06 09:46] VITALS: BP 120/74; PULSE 54; O2SAT 100; BMI 27.3
== END 2023-11-06 10:22 | disposition home or self-care (01) ==
PROVIDERS: PCP Internal Medicine; Visit Provider Psychiatry & Neurology Neurology
DX: G43.E09 Chronic migraine with aura, not intractable, without status migrainosus (principal); R90.89 Other abnormal findings on diagnostic imaging of central nervous system
CPT/HCPCS: 99204

== ENCOUNTER → 2023-11-06 09:35 | Outpatient (BNVA) | payer OTHER, SELFPAY | PROVIDERS: PCP Internal Medicine; Visit Provider Psychiatry & Neurology Neurology | DX: G43.E09 Chronic migraine with aura, not intractable, without status migrainosus (principal); R90.89 Other abnormal findings on diagnostic imaging of central nervous system | CPT/HCPCS: 99202 ==

== ENCOUNTER 2023-11-26 15:22 | Outpatient (AMB) | payer OTHER, SELFPAY ==
[2023-11-26 15:39] VITALS: BP 102/72; BMI 27.3
--- NOTE | 2023-11-26 15:39 | A.OFFPC_ITS ---
Vital Signs 11/26/23 15:39 Height 5 ft 3 in Weight 154 lb BMI 27.3 BP 102/72 Blood Pressure Location Lt brachial Position Sitting Intake Visit Reasons: Annual Exam Intake Note: Patient here for a physical exam [employer] Required: No Accompanied by: Self / Same As Patient Allergies seafood Allergy (Mild, Verified 11/26/23 15:50) mild Medication List - Last Reconciled 11/26/23 by Viridiana Mendoza MD albuterol sulfate 90 mcg/actuation 2 puffs inhalation Q4-6H PRN 30 days albuterol sulfate 2.5 mg inhalation Q4-6H PRN budesonide 0.5 mg (2 mL) inhalation BID 30 days clotrimazole 1% 1 appl topical BID 30 days ergocalciferol (vitamin D2) 1,250 mcg PO QWEEK 90 days magnesium oxide 400 mg PO BEDTIME omeprazole 20 mg PO DAILY 90 days riboflavin (vitamin B2) 400 mg PO QAM sumatriptan succinate 50 mg PO Q2-4H PRN 30 days topiramate 1 tab qam and 2tabs qhs orally; 30 days Tobacco use date assessed: 11/26/23 Dental Screening Dental Screen Date: 06/27/23 HPI HPI Comments History of Present Illness Details This is a 48-year-old female that comes for her physical exam. Last mammogram was 2021. Has never had a colonoscopy. Last Pap smear was 2020. Complains of bilateral hand paresthesias that started few weeks ago. Also has some rash in arms that bothers her and are relieved with clotrimazole cream. No chest pain or shortness on breath. [facility] Medical History (Updated 11/26/23 @ 15:59 by Viridiana Mendoza MD) Chronic migraine with aura Family history of breast cancer Chronic allergic rhinitis Allergies Asthma Cervical cancer screening Fibroadenoma of breast Breast mass, right Hypovitaminosis D Anemia Breast mass Depression Mild asthma Overweight Surgical History S/P excision of fibroadenoma of breast Hx of tubal ligation Hx laparoscopic cholecystectomy Gastric bypass status for obesity Hx of breast reduction, elective Family History Mother Asthma Hypertension Father Asthma Hypertension Cancer Maternal Grandmother Breast cancer Family/Other Breast cancer Social History Housing: House Alcohol intake: never Patient Tobacco Use Status: Current someday Tobacco user Tobacco use type: Cigarette Cigarettes Per Day: 2 e-Cigarette/Vaping Use: Never Used Second Hand Smoke Exposure: No service: No Current occupational status: employed Current occupational exposures/hazards: No Cognitive needs: No Hearing needs: No Vision needs: Yes Female Reproductive History Menstrual Age of Menarche: 14 Questionnaire Thrive Questionnaire Date Thrive assessed: 06/27/23 SUSAN-7 AMB Questionnaire SUSAN-7 Date SUSAN - 7 assessed: 06/27/23 Source: Developed by Drs. Varinder More, Cecy Conde, Vu Vaughn and colleagues, with an educational britton from [employer]. Review of Systems Const All systems reviewed & are unremarkable except as noted in HPI and below Card Denies chest pain at rest, Denies chest pain with activity, Denies edema, Denies irregular heart rhythm, Denies claudication, Denies dyspnea, Denies dyspnea on exertion, Denies orthopnea, Denies paroxysmal nocturnal dyspnea and Denies slow heart rate Resp Denies cough, Denies dyspnea and Denies dyspnea on exertion Aller/Immun Reports urticaria Physical exam (Primary Care) Vital Signs: Last Vital Signs BP 102/72 11/26/23 15:39 BMI result Body Mass Index 27.3 Tobacco/Smoking Status: Tobacco use Status Tobacco use date assessed 11/26/23 11/26/23 15:42 Patient Tobacco Use Status Current someday Tobacco 11/26/23 15:42 Tobacco use type Cigarette 11/26/23 15:42 e-Cigarette/Vaping Use Never Used 11/26/23 15:42 Thrive Assessment: Date of Thrive Assessment Date Thrive assessed 06/27/23 11/26/23 15:42 Const Orientation/consciousness: patient oriented x3 HENMT Head: Yes normal to inspection, Yes normocephalic and Yes atraumatic Ears: external ears normal Eyes General: appearance normal, both eyes and all related structures Eyelids: Yes eyelids normal Conjunctivae: conjunctivae normal Neck Neck: Yes normal visual inspection and Yes supple Resp Effort & Inspection: normal respiratory effort Auscultation: clear to auscultation bilaterally Cardio Jugular venous distension: no JVD Rate: regular rate Rhythm: regular rhythm Heart sounds: S1 normal heart sound present and S2 normal heart sound present GI Inspection: Yes normal to inspection Palpation (GI): Soft to palpation and nontender Auscultation: normal bowel sounds Skin General skin exam: no rashes or lesions noted Neuro General: patient oriented x3 and no focal motor deficits Extrem General: Yes full ROM Psych Appearance: grossly normal Assessment and Plan Assessment & Plan (1) Physical exam: Code(s): Z00.00 - Encounter for general adult medical examination without abnormal findings Plan: Repeat in a year. (2) Paresthesia of hand, bilateral: Code(s): R20.2 - Paresthesia of skin Plan: Nerve conduction study ordered. Orders: Orders Complete Blood Count Auto Diff Today D64.9 - Anemia, unspecified IRON PROFILE Today D64.9 - Anemia, unspecified Vitamin B12 and Folate Today E53.8 - Deficiency of other specified B group vitamins UA CC w/rflx Micro + Cult Today R30.0 - Dysuria T Spot TB Today Z11.1 - Encounter for screening for respiratory tuberculosis Comprehensive [place]. Panel Fast Today Z00.00 - Encounter for general adult medical examination without abnormal findings NE nerve conduction velocity Today R20.2 - Paresthesia of skin MM screening mammo BI Today Z12.31 - Encounter for screening mammogram for malignant neoplasm of breast Vitamin D 25-OH Total Today E55.9 - Vitamin D deficiency, unspecified Lipid Panel Today Z00.00 - Encounter for general adult medical examination without abnormal findings Referrals Pulmonology Referral J45.30 - Mild persistent asthma, uncomplicated Open Access Screening Colonoscopy Referral Z12.11 - Encounter for screening for malignant neoplasm of colon Medications: Refilled clotrimazole 1% 1 appl topical BID 45 grams 2RF 30 days Coding Level of Care Code Est Pt Level 3 (57349) Est Pt Prev Care 40-64y(86781) Diagnoses Physical exam Z00.00 Paresthesia of hand, bilateral R20.2 Time Spent (min) 35
== END 2023-11-26 16:02 | disposition home or self-care (01) ==
PROVIDERS: PCP Internal Medicine; Visit Provider Internal Medicine
DX: Z00.00 Encounter for general adult medical examination without abnormal findings (principal); R20.2 Paresthesia of skin
CPT/HCPCS: 99396

== ENCOUNTER 2023-12-27 15:29 | Outpatient (REF) | payer OTHER, SELFPAY ==
--- NOTE | ~2023-12-27 | MM_ITS ---
EXAMINATION: MM SCREENING DIGITAL BREAST TOMOSYNTHESIS, BILATERAL CLINICAL INFORMATION: Screening. Asymptomatic. The patient is status post bilateral breast reduction. COMPARISON: Mammography: This study is compared with prior exams dating back to 2020. TECHNIQUE: Digital breast tomosynthesis is performed in both the craniocaudal and mediolateral oblique views along with computer-aided detection (CAD). Synthesized 2D images are generated from the tomosynthesis. FINDINGS: The breasts are heterogeneously dense, which may obscure small masses (ACR BI-RADS breast composition Category c). There are no significant masses, abnormal calcifications, or other abnormalities. Post reduction changes are present. There is a tissue marker within a well-circumscribed, 13 mm benign oval mass of the superior aspect of the right breast. Few bilateral benign calcifications are present. MM/MM tomosynthesis screening BI IMPRESSION: No mammographic evidence of malignancy. ASSESSMENT: BI-RADS BI-RADS 2 - Benign Findings RECOMMENDATION: Routine annual mammography screening. 1 year F/U This examination should not preclude the clinical evaluation of a suspicious palpable abnormality. This patient's information was entered into a reminder system with a target due date for their next mammogram.
--- NOTE | 2023-12-27 15:31 | EMG_ITS ---
Chief complaint: New onset hand numbness and pain Reason for referral: Evaluate for Carpal Tunnel Syndrome Referred by: Dr. Sweeney Procedure done: Bilateral upper extremities NCS/EMG Precautions and/or limitations: None The limb temperature was monitored continuously and remained between 32-36 degrees C during the performance of the NCS. Nerve Conduction Studies Anti Sensory Summary Table ?Stim Site NR Onset (ms) Norm Onset (ms) Peak (ms) Norm Peak (ms) O-P Amp (?V) Norm O-P Amp Site1 Site2 Delta-0 (ms) Dist (cm) Tima (m/s) Norm Tima (m/s) Left Median Anti Sensory (2nd Digit) Wrist ? 2.4 3.1 <3.6 50.4 >10 Wrist 2nd Digit 2.4 14.0 58 Right Median Anti Sensory (2nd Digit) Wrist ? 2.1 3.1 <3.6 53.6 >10 Wrist 2nd Digit 2.1 14.0 67 Left Ulnar Anti Sensory (5th Digit) Wrist ? 2.1 2.9 <3.7 41.8 >15.0 Wrist 5th Digit 2.1 14.0 67 Right Ulnar Anti Sensory (5th Digit) Wrist ? 2.2 2.9 <3.7 47.1 >15.0 Wrist 5th Digit 2.2 14.0 64 Motor Summary Table ?Stim Site NR Onset (ms) Norm Onset (ms) O-P Amp (mV) Norm O-P Amp iAmp (mV) Amp (1st) (%) Site1 Site2 Delta-0 (ms) Dist (cm) Tima (m/s) Norm Tima (m/s) Left Median Motor (Abd Poll Brev) Wrist ? 3.4 <3.9 17.0 >4.5 19.2 100.0 Elbow Wrist 3.4 20.0 59 >45 Elbow ? 6.8 16.7 19.0 98.2 Right Median Motor (Abd Poll Brev) Wrist ? 3.6 <3.9 9.7 >4.5 10.9 100.0 Elbow Wrist 3.6 20.0 56 >45 Elbow ? 7.2 11.0 12.9 113.4 Left Ulnar Motor (Abd Dig Minimi) Wrist ? 2.6 <3.0 9.5 >5 10.6 100.0 B Elbow Wrist 3.1 17.0 55 >45 B Elbow ? 5.7 9.1 10.2 95.8 A Elbow B Elbow 1.5 10.0 67 >45 A Elbow ? 7.2 8.8 10.0 92.6 Right Ulnar Motor (Abd Dig Minimi) Wrist ? 2.7 <3.0 11.7 >5 13.6 100.0 B Elbow Wrist 3.4 20.0 59 >45 B Elbow ? 6.1 10.4 12.5 88.9 A Elbow B Elbow 1.4 10.0 71 >45 A Elbow ? 7.5 10.9 13.8 93.2 Comparison Summary Table ?Stim Site NR Peak (ms) Norm Peak (ms) P-T Amp (?V) Site1 Site2 Delta-P (ms) Norm Delta (ms) Left Median/Radial Dig I Comparison (Digit 1 - 10cm) Median ? 2.5 <2.9 62.8 Median Radial 0.2 Radial ? 2.7 <2.8 70.1 Right Median/Radial Dig I Comparison (Digit 1 - 10cm) Median ? 2.5 <2.9 85.2 Median Radial 0.2 Radial ? 2.7 <2.8 95.4 EMG ?Side Muscle Nerve Root Ins Act Fibs Psw Amp Dur Poly Recrt Int Pat Comment Right 1stDorInt Ulnar C8-T1 Nml Nml Nml Nml Nml 0 Nml Complete Right FlexCarRad Median C6-7 Nml Nml Nml Nml Nml 0 Nml Complete Right Biceps Musculocut C5-6 Nml Nml Nml Nml Nml 0 Nml Complete Right Triceps Radial C6-7-8 Nml Nml Nml Nml Nml 0 Nml Complete Right Deltoid Axillary C5-6 Nml Nml Nml Nml Nml 0 Nml Complete Left 1stDorInt Ulnar C8-T1 Nml Nml Nml Nml Nml 0 Nml Complete Left FlexCarRad Median C6-7 Nml Nml Nml Nml Nml 0 Nml Complete Left Biceps Musculocut C5-6 Nml Nml Nml Nml Nml 0 Nml Complete Left Triceps Radial C6-7-8 Nml Nml Nml Nml Nml 0 Nml Complete Left Deltoid Axillary C5-6 Nml Nml Nml Nml Nml 0 Nml Complete FINDINGS: All motor and sensory nerves tested showed normal latencies, amplitudes and conduction velocities. Concentric needle EMG was performed in selected muscles of the bilateral upper extremities. Study did not reveal signs of electric abnormalities as shown in the table above. IMPRESSION: 1. This is a normal study. 2. There is no electrodiagnostic evidence for median neuropathy, ulnar neuropathy, brachial plexopathy, or cervical radiculopathy. CLINICAL COMMENT: Advised to wear wrist splints at night. Thank you for your kind referral. Ya Blanton MD, TIFFANIE Board Certified, [place] Board of Physical Medicine and Rehabilitation (ABPMR) Board Certified, [place] Board of Electrodiagnostic Medicine (ABEM) CODIN [id number] x 2 MTDD
== END 2023-12-27 15:30 | disposition home or self-care (01) ==
LOC: HO.NEURO 15:29
PROVIDERS: PCP Internal Medicine; Visit Provider Internal Medicine
DX: Z12.31 Encounter for screening mammogram for malignant neoplasm of breast (principal); R20.2 Paresthesia of skin
CPT/HCPCS: 77063; 77067; 95886; 95911

== ENCOUNTER → 2023-12-27 15:31 | Outpatient (BNV) | payer OTHER, SELFPAY | PROVIDERS: PCP Internal Medicine; Visit Provider Physical Medicine & Rehabilitation | DX: R20.2 Paresthesia of skin (principal) | CPT/HCPCS: 95886; 95911 ==

== ENCOUNTER → 2023-12-27 16:15 | Outpatient (BNV) | payer OTHER, SELFPAY | PROVIDERS: PCP Internal Medicine; Visit Provider Radiology Diagnostic Radiology | DX: Z12.31 Encounter for screening mammogram for malignant neoplasm of breast (principal) | CPT/HCPCS: 77063; 77067 ==

== ENCOUNTER 2024-01-14 15:03 | Outpatient (AMB) | payer OTHER, SELFPAY ==
[2024-01-14 15:07] VITALS: PULSE 65; O2SAT 100; BMI 26.7
--- NOTE | 2024-01-14 15:07 | MHC.OFFVIS ---
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 she is initially from [facility]. While she was there she did require multiple hospitalizations and even intubation for her asthma. She has been on multiple respiratory therapies in addition to biologic therapies with minimal resolution of her symptoms. Now she is living in the area. [place] She has been struggling because she does not have her medications. the patient also does not have a nebulizer. She did viral in from a neighbor and she has been using it several times a day because of her significant wheezing and chest tightness. She also has coughing nonproductive in nature. Moderate severity. Has been a hard time sleeping. The patient does have underlying allergies but she has been tested in some time. the patient did have significant wheezing on examination. We did provide her with 2 DuoNeb treatments and she did feel significantly better. I will send a prednisone to home that she can start if she is to worsen. The patient needs to have a nebulizer for herself. Therefore, will provide her with one. 12/07/2021 the patient is here for a pulmonary follow-up visit. She continues to have a hard time with her asthma. Has been using her nebulized therapy 2 to 3 times a day. Also has continued on her maintenance therapy with only partial resolution of her symptoms. She feels like the asthma is affecting her quality of life and is making hard for her to work. We did review her blood work demonstrating eosinophilia. The patient has been on biologics in the past. Per the patient while she was in the ER she was placed on Dupixent and also Xolair. But, she continued to have breakthrough symptoms and continued to be on prednisone and hospitalizations. Therefore the best option will be to provide her a different biologic such as Tezspire. starting her on a biologic we decrease her need for prednisone and decrease her exacerbations requiring hospitalizations. In the meantime we did look at her pulmonary function studies were demonstrates severe small airways disease consistent with her severe persistent asthma which is uncontrolled at this time. The patient does have a significant response to bronchodilators which is reassuring. 01/14/2024 the patient is here for a pulmonary follow-up visit. She has done extremely well since we last saw her. Her asthma symptoms have significantly decreased. The patient was initially contemplating starting the test prior but that was never approved by the insurance. Apparently after that her respiratory improvement has been very significant. She does have a respiratory inhalers. Does been affecting beneficial. She has not required any prednisone has not require any antibiotics which is reassuring. 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 No imaging studies to review. No laboratories to review. She will continue with the current respiratory regimen. She will follow up in a year's time. If the patient has any worsening symptoms prior to that she will call for an earlier assessment. [facility] Medical History Chronic migraine with aura Family history of breast cancer Chronic allergic rhinitis Allergies Asthma Cervical cancer screening Fibroadenoma of breast Breast mass, right Hypovitaminosis D Anemia Breast mass Depression Mild asthma Overweight Surgical History S/P excision of fibroadenoma of breast Hx of tubal ligation Hx laparoscopic cholecystectomy Gastric bypass status for obesity Hx of breast reduction, elective Family History Mother Asthma Hypertension Father Asthma Hypertension Cancer Maternal Grandmother Breast cancer Family/Other Breast cancer Social History Housing: House Alcohol intake: never Patient Tobacco Use Status: Current someday Tobacco user Tobacco use type: Cigarette Cigarettes Per Day: 2 e-Cigarette/Vaping Use: Never Used Second Hand Smoke Exposure: No service: No Current occupational status: employed Current occupational exposures/hazards: No Cognitive needs: No Hearing needs: No Vision needs: Yes Female Reproductive History Menstrual Age of Menarche: 14 Review of Systems Eyes Denies change in vision ENT Reports nasal congestion and Reports nasal discharge Card Denies chest pain, Denies dyspnea and Denies dyspnea on exertion Resp Reports cough, Denies dyspnea, Denies dyspnea on exertion and Reports wheezing GI Reports no additional complaints Musc Reports no additional complaints Skin/Breast Denies rash Neuro Reports no additional complaints Aller/Immun Reports wheezing Physical Exam Vital Signs: Last Vital Signs Pulse 65 01/14/24 15:07 Pulse Ox 100 01/14/24 15:07 Oxygen Delivery Method Room Air 01/14/24 15:07 BMI result Body Mass Index 26.7 Const General: alert Neck Neck: Yes normal visual inspection, Yes full ROM and Yes no lymphadenopathy Chest Chest palpation & inspection: normal inspection of the chest Resp Effort & Inspection: normal respiratory effort Auscultation: clear to auscultation bilaterally and no wheezes Cardio Rate: regular rate Rhythm: regular rhythm Heart sounds: S1 normal heart sound present and S2 normal heart sound present GI Palpation (GI): Soft to palpation and nontender Auscultation: normal bowel sounds Skin General skin exam: rashes and/or lesions noted Quality Reporting (2019) Adult ([facility] ) Smoking risk assessment performed?: Yes Patient Tobacco Use Status: Current someday Tobacco user Assessment & Plan Assessment & Plan (1) Asthma: Code(s): J45.909 - Unspecified asthma, uncomplicated Category: Medical Qualifiers: Asthma complication type: with acute exacerbation Asthma persistence: persistent Asthma severity: severe Qualified Code(s): J45.51 - Severe persistent asthma with (acute) exacerbation (2) Allergies: Code(s): T78.40XA - Allergy, unspecified, initial encounter Category: Medical Qualifiers: Encounter type: subsequent encounter Qualified Code(s): T78.40XD - Allergy, unspecified, subsequent encounter (3) Chronic allergic rhinitis: Code(s): J30.9 - Allergic rhinitis, unspecified Category: Medical Plan Continue Symbicort continue Spiriva stop Budesonide nebs BID BALDEMAR as needed continue albuterol nebs as needed F/U 12 months Medications: New budesonide-formoterol 160-4.5 mcg/actuation (Symbicort) 2 puffs inhalation BID 10.2 grams 11RF 30 days J44.89 - Other specified chronic obstructive pulmonary disease tiotropium bromide 2.5 mcg/actuation (Spiriva Respimat) 2 puffs inhalation DAILY 1 ea 11RF 30 days Changed From albuterol sulfate 2.5 mg inhalation Q6H PRN bronchospasm J45.909 - Unspecified asthma, uncomplicated To albuterol sulfate 2.5 mg (3 mL) inhalation Q6H PRN 180 mL 11RF bronchospasm 30 days J45.909 - Unspecified asthma, uncomplicated From albuterol sulfate 90 mcg/actuation 2 puffs inhalation Q4-6H 30 days PRN 6.7 grams 6RF bronchospasm J45.909 - Unspecified asthma, uncomplicated To albuterol sulfate 90 mcg/actuation 2 puffs inhalation Q6H PRN 6.7 grams 11RF bronchospasm 30 days J45.909 - Unspecified asthma, uncomplicated Coding Level of Care Code Est Pt Level 4 (40879) Diagnoses Severe persistent asthma with acute exacerbation J45.51 Asthma complication type: with acute exacerbation Asthma persistence: persistent Asthma severity: severe Allergy, subsequent encounter T78.40XD Encounter type: subsequent encounter Chronic allergic rhinitis J30.9 Time Spent (min) 15
== END 2024-01-14 15:16 | disposition home or self-care (01) ==
PROVIDERS: PCP Internal Medicine; Visit Provider Hospitalist
DX: J45.51 Severe persistent asthma with (acute) exacerbation (principal); T78.40XD Allergy, unspecified, subsequent encounter; J30.9 Allergic rhinitis, unspecified
CPT/HCPCS: 99214

== ENCOUNTER → 2024-01-14 15:03 | Outpatient (BNVA) | payer OTHER, SELFPAY | PROVIDERS: PCP Internal Medicine; Visit Provider Hospitalist | DX: J45.51 Severe persistent asthma with (acute) exacerbation (principal); J30.9 Allergic rhinitis, unspecified; T78.40XD Allergy, unspecified, subsequent encounter | CPT/HCPCS: 99212 ==

== ENCOUNTER 2024-05-13 08:22 | Outpatient (AMB) | payer OTHER, SELFPAY ==
[2024-05-13 08:29] VITALS: BP 120/80; PULSE 54; TEMP 36.7; O2SAT 98
--- NOTE | 2024-05-13 08:29 | AM.OFFWIN_ITS ---
Intake Vital Signs 05/13/24 08:29 Weight 154 lb BP 120/80 Blood Pressure Location Lt brachial Position Sitting Pulse 54 Pulse Source Pulse Oximeter Temp 98.1 F Temp Source Oral Pulse Oximetry (%) 98 Oxygen Delivery Method Room Air Intake Visit Reasons: EP cold, fever, diarreah, cough, headache Intake Note: Patient here for cough, headache, diarrhea and fevers that started saturday night. Patient Tobacco Use Status: Current someday Tobacco user Allergies seafood Allergy (Mild, Verified 05/13/24 08:30) mild Do you need a note to return to daycare/school/sports/work: Yes HPI HPI Comments History of Present Illness Details The patient is a 48-year-old female presenting with respiratory symptoms suggestive of an acute viral infection and exacerbation of asthma. The patient reports the onset of symptoms began on Saturday and has progressively worsened. Symptoms include fever, body aches, a dry cough, and generalized malai se. She experienced fever the previous morning, relieved symptomatically with Tylenol. The patient notes a pattern of symptom alleviation during daytime, worsening during the evening, specifically after 4 PM. ? 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 In addition to systemic symptoms, the patient reports headache and throat discomfort but denies sinus or ear pain. A single episode of diarrhea occurred yesterday, necessitating attention to hydration. ? The patient's asthma has been controlled with albuterol inhalers, Cymbicort, and Spiriva, though she reports increased usage of both her nebulizer and rescue inhaler since symptom onset. Persistent chronic wheezing is reported, typically unchanged despite inhaler use. [facility] Medical History Chronic migraine with aura Family history of breast cancer Chronic allergic rhinitis Allergies Asthma Cervical cancer screening Fibroadenoma of breast Breast mass, right Hypovitaminosis D Anemia Breast mass Depression Mild asthma Overweight Surgical History S/P excision of fibroadenoma of breast Hx of tubal ligation Hx laparoscopic cholecystectomy Gastric bypass status for obesity Hx of breast reduction, elective Family History Mother Asthma Hypertension Father Asthma Hypertension Cancer Maternal Grandmother Breast cancer Family/Other Breast cancer Social History Housing: House Alcohol intake: never Patient Tobacco Use Status: Current someday Tobacco user Tobacco use type: Cigarette Cigarettes Per Day: 2 e-Cigarette/Vaping Use: Never Used Second Hand Smoke Exposure: No service: No Current occupational status: employed Current occupational exposures/hazards: No Cognitive needs: No Hearing needs: No Vision needs: Yes Female Reproductive History Menstrual Age of Menarche: 14 Review of Systems Const All systems reviewed & are unremarkable except as noted in HPI and below Physical Exam Vital Signs: Last Vital Signs Temp 98.1 F 05/13/24 08:29 Pulse 54 05/13/24 08:29 BP 120/80 05/13/24 08:29 Pulse Ox 98 05/13/24 08:29 Oxygen Delivery Method Room Air 05/13/24 08:29 Const General: cooperative, healthy appearing, comfortable and no acute distress Orientation/consciousness: patient oriented x3 Limitations: no limitations HEENT Head: Yes normal to inspection Ears: hearing grossly normal bilaterally, external ears normal and TM's normal bilaterally General nose exam: Normal external nose present, Normal nares present and No nasal discharge present Face and sinus: Yes normal facial exam and Yes sinuses nontender Mouth: Normal oral and palatal mucosa present and moist mucous membranes Throat: Yes tonsils normal, Yes uvula midline and Yes posterior oropharynx abnormal (Erythema) Eyes General: appearance normal, both eyes and all related structures Neck Neck: Yes normal visual inspection Resp Effort & Inspection: normal respiratory effort, able to speak in complete sentences, no respiratory distress, not tachypneic, no tripod positioning and no use of accessory muscles Auscultation: wheezes expiratory wheezes and throughout Cardio Rate: regular rate Rhythm: regular rhythm Heart sounds: normal S1 and S2 Skin General skin exam: no rashes or lesions noted Neuro General: patient oriented x3 Extrem General: Yes normal to inspection and Yes no clubbing, cyanosis or edema Assessment & Plan Assessment & Plan (1) Atypical pneumonia: Code(s): J18.9 - Pneumonia, unspecified organism Plan: VSS, sent zpak and pred 50mg X 5days with work note for today and tomorrow. Sent flu,covid and rsv. Orders: Orders SARS-CoV2/FLU/RSV Today R09.89 - Other specified symptoms and signs involving the circulatory and respiratory systems Medications: New azithromycin For 250 mg dose pack: take 500 mg today (day 1), then 250 mg for 4 days (days 2-5) PO 6 tabs 0RF prednisone 50 mg PO daily 5 tabs 0RF Coding Level of Care Code Est Pt Level 3 (27036) Diagnoses Atypical pneumonia J18.9
== END 2024-05-13 08:44 | disposition home or self-care (01) ==
PROVIDERS: PCP Internal Medicine; Visit Provider Physician Assistant
DX: J18.9 Pneumonia, unspecified organism (principal)

== ENCOUNTER 2024-05-13 08:22 | Outpatient (REF) | payer OTHER, SELFPAY ==
[2024-05-13 11:17] LABS: Influenza A PCR NEGATIVE (Negative); Influenza B PCR NEGATIVE (Negative); Resp Syncy Virus RNA Qual PCR NEGATIVE (Negative); SARS COV2 PCR INHOUSE NEGATIVE (Negative)
== END 2024-05-13 08:23 | disposition home or self-care (01) ==
LOC: HO.LAB 08:22
PROVIDERS: PCP Internal Medicine; Visit Provider Physician Assistant
DX: J18.9 Pneumonia, unspecified organism (principal); R09.89 Other specified symptoms and signs involving the circulatory and respiratory systems
CPT/HCPCS: 0241U; 99212

== ENCOUNTER 2024-07-14 15:18 | Outpatient (REF) | payer OTHER, SELFPAY ==
[2024-07-14 15:34] LABS: MANUAL DIFF FLAG NO
[2024-07-14 16:12] LABS: Basophils Percent Auto 0.8 % (0-2); Eosinophils Absolute Auto 0.2 X10*3/uL (0.0-0.4); Eosinophils Percent Auto 4.1 % (0-4); Hematocrit 34.3 % (37.0-47.0); Hemoglobin 10.5 g/dl (12.0-16.0); Imm Gran Abs Auto 0.01 X10*3/uL (0.00-0.03); Imm Gran Pct Auto 0.3 % (0.0-0.4); Lymphocytes Absolute Auto 1.5 X10*3/uL (1.2-4.9); Lymphocytes Percent Auto 37.9 % (20-40); Mean Corpuscular HGB Conc 30.6 g/dl (31.0-35.0); Mean Corpuscular Hemoglobin 24.6 pg (27.0-33.0); Mean Corpuscular Volume 80.3 fL (80.0-98.0); Mean Platelet Volume 11.2 fL (9.4-12.3); Monocytes Absolute Auto 0.2 X10*3/uL (0.1-1.2); Monocytes Percent Auto 5.4 % (2-11); Neutrophils Percent Auto 51.5 % (45-73); Platelet Count 163 X10*3/uL (160-400); Red Blood Count 4.27 X10*6/uL (4.20-5.50); Red Cell Distribution Width 15.3 % (11.0-16.0); White Blood Count 3.9 X10*3/uL (4.8-10.8)
[2024-07-14 16:51] LABS: Alanine Aminotransferase 19 U/L (0-31); Albumin Level 4.3 g/dL (3.5-5.0); Alkaline Phosphatase 68 U/L (39-117); Anion Gap 16 (12-20); Aspartate Amino Transferase 27 U/L (5-31); Bilirubin Total 0.2 mg/dL (0.0-1.0); Blood Urea Nitrogen 16 mg/dL (9-16); Calcium 9.4 mg/dL (8.4-10.2); Carbon Dioxide 25 mmol/L (22-29); Chloride 108 mmol/L (96-108); Cholesterol 170 mg/dL (<200); Estimated Glomerular Filt Rate 57; Glucose Fasting 84 mg/dL (60-99); HDL Cholesterol 59 mg/dL (>40); Iron 43 mcg/dL (30-160); LDL Cholesterol Calculated 86 mg/dL (<100); Percent Iron Saturation 14 % (15-50); Potassium 4.2 mmol/L (3.3-5.1); Sodium 145 mmol/L (135-145); Total Iron Binding Capacity 314 mcg/dL (228-428); Total Protein 7.5 g/dL (6.5-8.0); Triglycerides 128 mg/dL (<150); Unsaturated Iron Binding 271 ug/dL
[2024-07-14 17:01] LABS: Appearance Urine Cloudy; Color Urine Yellow; Glucose Urine UA Negative (Negative); Leukocyte Esterase Urine Trace (Negative); Nitrite Urine Positive (Negative); UMIC TRIGGER UACC YES; Urine Blood Negative (Negative); Urine Ketones Negative (Negative); Urine Protein Negative (Neg-Trace)
[2024-07-14 17:08] LABS: Vitamin D 25-OH Total 10.6 ng/mL (>30)
[2024-07-14 17:19] LABS: Vitamin B12 306 pg/mL (200-900)
[2024-07-14 18:17] LABS: Bacteria Urine 4+ (None Seen); Calcium Oxalate Crystals Urine Present; Hyaline Casts Urine 0-2 /LPF (0-2); RBC Urine 0-2 /HPF (0-2); Squamous Epithelial Cell Urine 0-2 /HPF (0-2); UACC Culture Trigger YES; WBC Urine 0-5 /HPF (0-5)
[2024-07-17 12:28] LABS: TS Negative Control Passed; TS Panel A 0; TS Panel B 0; TS Positive Control Passed; TSpotTB Negative (Negative)
== END 2024-07-14 15:19 | disposition home or self-care (01) ==
LOC: HO.LAB 15:18
PROVIDERS: PCP Internal Medicine; Visit Provider Internal Medicine
DX: Z00.00 Encounter for general adult medical examination without abnormal findings (principal); D64.9 Anemia, unspecified; E55.9 Vitamin D deficiency, unspecified; Z11.1 Encounter for screening for respiratory tuberculosis; E53.8 Deficiency of other specified B group vitamins
CPT/HCPCS: 36415; 80053; 80061; 81001; 81003; 82306; 82607; 82746; 83540; 85025; 86481; 87086; 87088; 87147; 87186

== ENCOUNTER 2024-07-24 15:11 | Outpatient (REF) | payer OTHER, SELFPAY | END 2024-07-24 15:12 | disposition home or self-care (01) | LOC: HO.LAB 15:11 | PROVIDERS: PCP Internal Medicine; Visit Provider Physician Assistant | DX: J06.9 Acute upper respiratory infection, unspecified (principal) | CPT/HCPCS: 99212 ==

== ENCOUNTER 2024-07-24 15:11 | Outpatient (AMB) | payer OTHER, SELFPAY ==
--- NOTE | 2024-07-24 16:12 | AM.OFFWIN_ITS ---
Intake Vital Signs 07/24/24 16:13 Weight 154 lb BP 120/80 Blood Pressure Location Lt brachial Position Sitting Pulse 53 Pulse Source Pulse Oximeter Temp 97.8 F Temp Source Oral Pulse Oximetry (%) 98 Oxygen Delivery Method Room Air Intake Visit Reasons: EP body ache,headache, sore throat, kena, chills Intake Note: Patient here for headaches, body aches, runny nose that started yesterday. Patient Tobacco Use Status: Current someday Tobacco user Allergies seafood Allergy (Mild, Verified 05/13/24 08:30) mild Do you need a note to return to daycare/school/sports/work: Yes HPI HPI Comments History of Present Illness Details History - The patient is a 48-year-old female pr esenting with headache, runny nose, cough, body aches, and wheezing. The symptoms started one day prior to her visit. She has not received the flu vaccine this season. The patient reports no fever or gastrointestinal symptoms such as nausea, vomiting, or diarrhea. Her past medical history is significant for asthma, with a current wheezing episode, and she has a history of migraine headaches, with an episode occurring last week. The patient requested a test for COVID-19 due to recent possible exposure. Physical Exam General: Cooperative, healthy appearing, comfortable and no acute distress Orientation/consciousness: Patient oriented x3 Limitations: No limitations Head: Normal to inspection Ears: Hearing grossly normal bilaterally, external ears normal and TM's normal bilaterally Nose: Runny nose present Face and sinus: Normal facial exam and Yes sinuses nontender Mouth: Normal oral and palatal mucosa present and moist mucous membranes Throat: Yes tonsils normal, Yes uvula midline. Posterior oropharynx erythema Eyes: Appearance normal, both eyes and all related structures Neck: Normal visual inspection Respiratory: expiratory wheezes throughout. Normal respiratory effort, able to speak in complete sentences, Actively coughing, wheezing present, no respiratory distress, not tachypneic, no tripod positioning and no use of accessory muscles Cardiovascular: Regular rate and rhythm. Normal S1 and S2 Skin: No rashes or lesions noted Neuro: Patient oriented x3 Extremities: Normal to inspection and Yes no clubbing, cyanosis or edema [facility] Medical History Chronic migraine with aura Family history of breast cancer Chronic allergic rhinitis Allergies Asthma Cervical cancer screening Fibroadenoma of breast Breast mass, right Hypovitaminosis D Anemia Breast mass Depression Mild asthma Overweight Surgical History S/P excision of fibroadenoma of breast Hx of tubal ligation Hx laparoscopic cholecystectomy Gastric bypass status for obesity Hx of breast reduction, elective Family History Mother Asthma Hypertension Father Asthma Hypertension Cancer Maternal Grandmother Breast cancer Family/Other Breast cancer Social History Housing: House Alcohol intake: never Patient Tobacco Use Status: Current someday Tobacco user Tobacco use type: Cigarette Cigarettes Per Day: 2 e-Cigarette/Vaping Use: Never Used Second Hand Smoke Exposure: No service: No Current occupational status: employed Current occupational exposures/hazards: No Cognitive needs: No Hearing needs: No Vision needs: Yes Female Reproductive History Menstrual Age of Menarche: 14 Review of Systems Const All systems reviewed & are unremarkable except as noted in HPI and below Physical Exam Vital Signs: Last Vital Signs Temp 97.8 F 07/24/24 16:13 Pulse 53 07/24/24 16:13 BP 120/80 07/24/24 16:13 Pulse Ox 98 07/24/24 16:13 Oxygen Delivery Method Room Air 07/24/24 16:13 Assessment & Plan Assessment & Plan (1) URI, acute: Code(s): J06.9 - Acute upper respiratory infection, unspecified Plan: I will send a prescription for oseltamivir Tamiflu pending confirmation of the influenza test result. It should not be used if she does NOT test positive for the flu or if she take it and she develops nausea, vomiting, or diarrhea. I have prescribed prednisone 50 mg daily for five days for asthma management, starting the following morning. Tessalon Perles is prescribed to address her cough, to be used before bed for relief. The patient will continue her current migraine medication and is advised to maintain adequate hydration. A work note is to be provided by the lockstitch front edge tape sewer. Patient was informed and verbally consented to the use of an ambient scribe for clinic note documentation during this visit Orders: Orders SARS-CoV2/FLU/RSV Today J06.9 - Acute upper respiratory infection, unspecified Medications: New oseltamivir (Tamiflu) 75 mg PO Q12H 5 days 10 caps 0RF prednisone 50 mg PO QAM 5 tabs 0RF benzonatate 200 mg PO TID PRN 14 caps 0RF cough Coding Level of Care Code Est Pt Level 3 (73947) Diagnoses URI, acute J06.9
[2024-07-24 16:13] VITALS: BP 120/80; PULSE 53; TEMP 36.6; O2SAT 98
== END 2024-07-24 16:36 | disposition home or self-care (01) ==
PROVIDERS: PCP Internal Medicine; Visit Provider Physician Assistant
DX: J06.9 Acute upper respiratory infection, unspecified (principal)

== ENCOUNTER 2024-07-25 11:31 | Outpatient (REF) | payer OTHER, SELFPAY ==
[2024-07-25 12:20] LABS: Influenza A PCR NEGATIVE (Negative); Influenza B PCR NEGATIVE (Negative); Resp Syncy Virus RNA Qual PCR NEGATIVE (Negative); SARS COV2 PCR INHOUSE NEGATIVE (Negative)
== END 2024-07-25 11:32 | disposition home or self-care (01) ==
LOC: HO.LNP 11:31
PROVIDERS: Visit Provider Physician Assistant
DX: J06.9 Acute upper respiratory infection, unspecified (principal)
CPT/HCPCS: 0241U

== ENCOUNTER 2024-08-18 08:42 | Outpatient (AMB) | payer OTHER, SELFPAY ==
--- NOTE | 2024-08-18 09:19 | AM.OFFWIN_ITS ---
Intake Vital Signs 08/18/24 09:20 Height 5 ft 3 in Weight 147 lb BMI 26.0 BP 122/80 Blood Pressure Location Rt brachial Position Sitting Pulse 74 Pulse Source Pulse Oximeter Pulse Oximetry (%) 98 Oxygen Delivery Method Room Air Intake Visit Reasons: EP Neck pain radiating down back Intake Note: Patient here for lump on neck and pain radiates down to the lower back that has been present since Saturday. Patient Tobacco Use Status: Current someday Tobacco user Allergies seafood Allergy (Mild, Verified 08/18/24 09:21) mild Medication List - Last Reconciled 08/18/24 by Ton Villatoro MD albuterol sulfate 2.5 mg (3 mL) inhalation Q6H PRN 30 days albuterol sulfate 90 mcg/actuation 2 puffs inhalation Q6H PRN 30 days budesonide 0.5 mg (2 mL) inhalation BID 30 days budesonide-formoterol 160-4.5 mcg/actuation (Symbicort) 2 puffs inhalation BID 30 days clotrimazole 1% 1 appl topical BID 30 days ergocalciferol (vitamin D2) 1,250 mcg PO QWEEK 90 days ferrous sulfate 325 mg PO DAILY 90 days magnesium oxide 400 mg PO BEDTIME nebulizers As directed riboflavin (vitamin B2) 400 mg PO QAM sumatriptan succinate 50 mg PO Q2-4H PRN 30 days tiotropium bromide 2.5 mcg/actuation (Spiriva Respimat) 2 puffs inhalation DAILY 30 days topiramate 1 tab qam and 2tabs qhs orally; 30 days Do you need a note to return to daycare/school/sports/work: Yes HPI EP Neck pain radiating down back HPI Details History - The patient is a 49-year-old female pr esenting with back pain. 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 - She has been taking ibuprofen without significant improvement. - There is no history of similar episode s of back pain reported. Problem List - Back muscle spasm Patient Instructions - Take the prescribed muscle relaxer gabbie ry eight hours for a couple of days. - Avoid working while taking the muscle relaxer, as it may cause drowsiness. - Use hot water on the back during showe rs and consider massage therapy with warm olive oil to alleviate pain. - Rest the back and avoid lifting heavy objects and forward bending. - Consider using a back belt for support during heavy lifting activities. - note given for two days off from work for recovery. Review of Systems - General: No fever no chills - Neurological: No headaches no dizziness - Ear nose throat: No sore throat no hearing difficulty no ear pain - Cardiovascular: No syncope, no chest pain, no palpitations - Gastrointestinal: No nausea vomiting or diarrhea - Endocrine: No polyuria polydipsia no heat intolerance - Genitourinary: No dysuria , no blood in urine Physical Exam General: No acute distress HEENT: No acute findings Neck: Limited range of motion due to muscle spasm Respiratory system: Able to talk in full sentences, no audible wheeze Back: Pain located over both trapezius muscles and paraspinal thoracic and lumbar Gastrointestinal: No pain Extremities: No new findings, patient is able to lift both shoulders with some discomfort upper back 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: Alert awake oriented x3 motor sensory intact no radiation of pain to legs Skin: Normal turgor PFSH Medical History Chronic migraine with aura Family history of breast cancer Chronic allergic rhinitis Allergies Asthma Cervical cancer screening Fibroadenoma of breast Breast mass, right Hypovitaminosis D Anemia Breast mass Depression Mild asthma Overweight Surgical History S/P excision of fibroadenoma of breast Hx of tubal ligation Hx laparoscopic cholecystectomy Gastric bypass status for obesity Hx of breast reduction, elective Family History Mother Asthma Hypertension Father Asthma Hypertension Cancer Maternal Grandmother Breast cancer Family/Other Breast cancer Social History Housing: House Alcohol intake: never Patient Tobacco Use Status: Current someday Tobacco user Tobacco use type: Cigarette Cigarettes Per Day: 2 e-Cigarette/Vaping Use: Never Used Second Hand Smoke Exposure: No service: No Current occupational status: employed Current occupational exposures/hazards: No Cognitive needs: No Hearing needs: No Vision needs: Yes Female Reproductive History Menstrual Age of Menarche: 14 Physical Exam Vital Signs: Last Vital Signs Pulse 74 08/18/24 09:20 BP 122/80 08/18/24 09:20 Pulse Ox 98 08/18/24 09:20 Oxygen Delivery Method Room Air 08/18/24 09:20 BMI result Body Mass Index 26.0 Assessment & Plan Assessment & Plan (1) Trapezius muscle strain: Code(s): S46.819A - Strain of other muscles, fascia and tendons at shoulder and upper arm level, unspecified arm, initial encounter Qualifiers: Encounter type: initial encounter Laterality: unspecified laterality Qualified Code(s): S46.819A - Strain of other muscles, fascia and tendons at shoulder and upper arm level, unspecified arm, initial encounter (2) Lumbar paraspinal muscle spasm: Code(s): M62.830 - Muscle spasm of back (3) Mid back pain: Code(s): M54.9 - Dorsalgia, unspecified Plan History - The patient is a 49-year-old female presenting with back pain. 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 - She has been taking ibuprofen without significant improvement. - There is no history of similar episodes of back pain reported. Problem List - Back muscle spasm Patient Instructions - Take the prescribed muscle relaxer every eight hours for a couple of days. - Avoid working while taking the muscle relaxer, as it may cause drowsiness. - Use hot water on the back during showers and consider massage therapy with warm olive oil to alleviate pain. - Rest the back and avoid lifting heavy objects and forward bending. - Consider using a back belt for support during heavy lifting activities. - note given for two days off from work for recovery. Medications: New baclofen 10 mg PO TID 5 days PRN 15 tabs 0RF muscle spasm Coding Level of Care Code Est Pt Level 3 (05826) Diagnoses Strain of trapezius muscle, unspecified laterality, initial encounter S46.819A Encounter type: initial encounter Laterality: unspecified laterality Lumbar paraspinal muscle spasm M62.830 Mid back pain M54.9
[2024-08-18 09:20] VITALS: BP 122/80; PULSE 74; O2SAT 98; BMI 26.0
== END 2024-08-18 09:47 | disposition home or self-care (01) ==
PROVIDERS: PCP Internal Medicine; Visit Provider Internal Medicine
DX: S46.819A Strain of other muscles, fascia and tendons at shoulder and upper arm level, unspecified arm, initial encounter (principal); M62.830 Muscle spasm of back; M54.9 Dorsalgia, unspecified

== ENCOUNTER → 2024-08-18 08:42 | Outpatient (BNVA) | payer OTHER, SELFPAY | PROVIDERS: PCP Internal Medicine; Visit Provider Internal Medicine | DX: M62.830 Muscle spasm of back (principal); M54.9 Dorsalgia, unspecified; S46.811A Strain of other muscles, fascia and tendons at shoulder and upper arm level, right arm, initial encounter; S46.812A Strain of other muscles, fascia and tendons at shoulder and upper arm level, left arm, initial encounter | CPT/HCPCS: 99212 ==

== ENCOUNTER 2024-12-15 14:40 | Outpatient (AMB) | payer OTHER, SELFPAY ==
[2024-12-15 14:48] VITALS: BP 120/78; BMI 26.0
--- NOTE | 2024-12-15 14:48 | A.OFFPC_ITS ---
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: No Accompanied by: Self / Same As Patient Allergies seafood Allergy (Mild, Verified 12/15/24 14:57) mild Medication List - Last Reconciled 12/15/24 by Viridiana Mendoza MD albuterol sulfate 2.5 mg (3 mL) inhalation Q6H PRN 30 days albuterol sulfate 90 mcg/actuation 2 puffs inhalation Q6H PRN 30 days baclofen 10 mg PO TID PRN 5 days budesonide 0.5 mg (2 mL) inhalation BID 30 days budesonide-formoterol 160-4.5 mcg/actuation (Symbicort) 2 puffs inhalation BID 30 days clotrimazole 1% 1 appl topical BID 30 days ergocalciferol (vitamin D2) 1,250 mcg PO QWEEK 90 days ferrous sulfate 325 mg PO DAILY 90 days magnesium oxide 400 mg PO BEDTIME nebulizers As directed riboflavin (vitamin B2) 400 mg PO QAM sumatriptan succinate 50 mg PO Q2-4H PRN 30 days tiotropium bromide 2.5 mcg/actuation (Spiriva Respimat) 2 puffs inhalation DAILY 30 days topiramate 1 tab qam and 2tabs qhs orally; 30 days Tobacco use date assessed: 12/15/24 Dental Screening Dental Screen Date: 12/15/24 Did you have a dental visit in the last 12 months?: Yes Did you have a dental problem in the last 6 months where you did not have access to dental care?: No Was dental information given to patient?: Patient has dentist HPI HPI Comments History of Present Illness Details The patient is a 49-year-old female presenting for an annual physical examination and preventative care. She reports a history of anxiety, which has been more pronounced recently due to various stressors. She has experienced anxiety intermittently in the past but notes an increase in frequency and intensity lately. The patient underwent a breast biopsy in 2022, which returned benign results. She has a history of migraines, for which she takes sumatriptan as needed. Her surgical history includes a gastric bypass in 2016, cholecystectomy, and tubal ligation. She also had a breast reduction in 1996 and a fibroadenoma excision. The patient is up to date with her mammography, with the last one conducted in December 2021. She is also current with her Pap smears, having had one in 2020, followed by a biopsy in 2022. She has been advised to undergo colon cancer screening, with options including colonoscopy or Cologuard testing. - Mammography: Last conducted in December 27 - Pap smear: Last conducted in 2020, fol lowed by a benign biopsy in 2022 - Colon cancer screening: Recommended op tions include colonoscopy or Cologuard testing [facility] Medical History (Updated 12/15/24 @ 20:13 by Viridiana Mendoza MD) Chronic migraine with aura Family history of breast cancer Chronic allergic rhinitis Allergies Asthma Cervical cancer screening Fibroadenoma of breast Breast mass, right Hypovitaminosis D Anemia Breast mass Depression Mild asthma Overweight Surgical History S/P excision of fibroadenoma of breast Hx of tubal ligation Hx laparoscopic cholecystectomy Gastric bypass status for obesity Hx of breast reduction, elective Family History Mother Asthma Hypertension Father Asthma Hypertension Cancer Maternal Grandmother Breast cancer Family/Other Breast cancer Social History Housing: House Alcohol intake: never Patient Tobacco Use Status: Current someday Tobacco user Tobacco use type: Cigarette Cigarettes Per Day: 2 e-Cigarette/Vaping Use: Never Used Second Hand Smoke Exposure: No service: No Current occupational status: employed Current occupational exposures/hazards: No Cognitive needs: No Hearing needs: No Vision needs: Yes Female Reproductive History Menstrual Age of Menarche: 14 Questionnaire PHQ-9 Over the last 2 weeks, how often have you been bothered by any of the following problems? 1. Little interest or pleasure in doing things: not at all 2. Feeling down, depressed, or hopeless: not at all 3. Trouble falling or staying asleep, or sleeping too much: several days 4. Feeling tired or having little energy: several days 5. Poor appetite or overeating: several days 6. Feeling bad about yourself - or that you are a failure or have let yourself or your family down: not at all 7. Trouble concentrating on things, such as reading the newspaper or watching television: not at all 8. Moving or speaking so slowly that other people could have noticed. Or the opposite - being so fidgety or restless that you have been moving around a lot more than usual: not at all 9. Thoughts that you would be better off or of hurting yourself in some way: not at all Total score: 3 Depression Screening Interpretation: Positive Depression Screening Follow-up: Existing condition and Follow-up Visit Requested Depression Screening Done: Yes 60287 - PHQ-9 Billing: Yes Source: Developed by Drs. Varinder More, Cecy Conde, Vu Vaughn and colleagues, with an educational britton from [employer]. Thrive Questionnaire Date Thrive assessed: 06/27/23 I am a: Patient What is your living situation today?: I have a steady place to live Within the past 12 months, did the food you bought not last and you didn't have the money to get more?: Never true Within the past 12 months, did you worry whether your food would run out before you got money to buy more?: Never true Do you have trouble paying for medicines?: No Do you have trouble getting transportation to medical appointments?: No Do you have trouble paying your heating and electricity bill?: I choose not to answer this question Do you have trouble taking care of your child, family member or friend?: No Do you have trouble with day-to-day activities such as bathing, preparing meals, shopping, managing finances, etc.?: No Are you currently unemployed and looking for a job?: No Are you interested in more education?: No Please select the resources that you would like help with: None Currently or been in a relationship where the following occur: I choose not to answer THRIVE Score: 0 AUDIT C Alcohol Use Questionnaire (AUDIT-C) 1. How often do you have a drink containing alcohol?: Never Total Score: 0 Score Reviewed/Action Taken: No SUSAN-7 AMB Questionnaire SUSAN-7 Date SUSAN - 7 assessed: 06/27/23 Feeling nervous, anxious, or on edge: 0 = Not at all Not being able to stop or control worryin = Several days Worrying too much about different things: 1 = Several days Trouble relaxin = Not at all Being so restless that it is hard to sit still: 0 = Not at all Becoming easily annoyed or irritable: 0 = Not at all Feeling afraid as if something awful might happen: 0 = Not at all Total SUSAN-7 score (0-4 normal; 5-9 mild; 10-14 moderate; 15-21 severe): 2 Source: Developed by Drs. Varinder More, Cecy Conde, Vu Vaughn and colleagues, with an educational britton from [employer]. SUSAN-7 Assessment Billing SUSAN-7 Assessment Tool: SUSAN-7 Assessment 33834 Review of Systems Const All systems reviewed & are unremarkable except as noted in HPI and below Card Denies chest pain at rest, Denies chest pain with activity, Denies edema, Denies irregular heart rhythm, Denies claudication, Denies dyspnea, Denies dyspnea on exertion, Denies orthopnea, Denies paroxysmal nocturnal dyspnea and Denies slow heart rate Resp Denies cough, Denies dyspnea and Denies dyspnea on exertion GI Denies abdominal pain, Denies change in bowel habits, Denies excessive flatus, Denies nausea and Denies vomiting Denies urinary incontinence, Denies urinary hesitancy and Denies urinary urgency Musc Denies abnormal gait, Denies atrophy, Denies deformity and Denies limited range of motion Skin/Breast Denies bleeding lesions, Denies changing lesions and Denies rash Neuro Denies abnormal gait and Denies lack of coordination Physical exam (Primary Care) Vital Signs: Last Vital Signs BP 120/78 12/15/24 14:48 BMI result Body Mass Index 26.0 Tobacco/Smoking Status: Tobacco use Status Tobacco use date assessed 12/15/24 12/15/24 14:52 Patient Tobacco Use Status Current someday Tobacco 12/15/24 14:52 Tobacco use type Cigarette 12/15/24 14:52 e-Cigarette/Vaping Use Never Used 12/15/24 14:52 PHQ-9: PHQ-9 Score PHQ-9: Total score 3 12/15/24 15:10 Depression Screening Interpretation: Positive Depression Screening Follow-up: Existing condition and Follow-up Visit Requested Thrive Assessment: Date of Thrive Assessment Date Thrive assessed 06/27/23 12/15/24 14:52 Currently or been in a relationship where the following occur: I choose not to answer HENMT Head: Yes normal to inspection, Yes normocephalic and Yes atraumatic Ears: external ears normal Eyes General: appearance normal, both eyes and all related structures Eyelids: Yes eyelids normal Conjunctivae: conjunctivae normal Neck Neck: Yes normal visual inspection and Yes supple Resp Effort & Inspection: normal respiratory effort Auscultation: clear to auscultation bilaterally Cardio Jugular venous distension: no JVD Rate: regular rate Rhythm: regular rhythm Heart sounds: S1 normal heart sound present and S2 normal heart sound present GI Inspection: Yes normal to inspection Palpation (GI): Soft to palpation and nontender Auscultation: normal bowel sounds Skin General skin exam: no rashes or lesions noted Neuro General: no focal motor deficits Extrem General: Yes full ROM Psych Appearance: grossly normal Coding Level of Care Code Est Pt Prev Care 40-64y(00550) Diagnoses Physical exam Z00.00 Mild major depression F32.0 Additional Codes SUSAN-7 Assessment Billing - SUSAN-7 Assessment Tool: SUSAN-7 Assessment 22632 ([id number]) PHQ-9 - 59431 - PHQ-9 Billing: Yes ([id number]) Time Spent (min) 30 Assessment & Plan Assessment & Plan (1) Physical exam: Code(s): Z00.00 - Encounter for general adult medical examination without abnormal findings Category: Medical (2) Mild major depression: Code(s): F32.0 - Major depressive disorder, single episode, mild Category: Medical Plan The patient will continue with her current migraine management using sumatriptan as needed. For anxiety, non-pharmacological interventions such as sleep hygiene and stress management techniques were discussed. Hydroxyzine was suggested as a potential option for managing anxiety and aiding sleep, with the patient advised to use it as needed rather than daily. Preventative care measures include scheduling a mammogram and Pap smear, as well as considering colon cancer screening options like colonoscopy or Cologuard. Patient was informed and verbally consented to the use of an ambient scribe for clinic note documentation during this visit. Orders: Orders IRON PROFILE Today D64.9 - Anemia, unspecified Complete Blood Count Auto Diff Today D64.9 - Anemia, unspecified Vitamin D 25-OH Total Today E55.9 - Vitamin D deficiency, unspecified Referrals Cologuard Test Z12.11 - Encounter for screening for malignant neoplasm of colon, Z12.12 - Encounter for screening for malignant neoplasm of rectum Medications: Refilled budesonide-formoterol 160-4.5 mcg/actuation (Symbicort) 2 puffs inhalation BID 10.2 grams 11RF 30 days J44.89 - Other specified chronic obstructive pulmonary disease albuterol sulfate 90 mcg/actuation 2 puffs inhalation Q6H PRN 6.7 grams 11RF bronchospasm 30 days J45.909 - Unspecified asthma, uncomplicated clotrimazole 1% 1 appl topical BID 45 grams 2RF 30 days
== END 2024-12-15 15:21 | disposition home or self-care (01) ==
LOC: HO.HMCH 14:41
PROVIDERS: PCP Internal Medicine; Visit Provider Internal Medicine
DX: Z00.00 Encounter for general adult medical examination without abnormal findings (principal); F32.0 Major depressive disorder, single episode, mild

== ENCOUNTER → 2024-12-15 14:40 | Outpatient (BNVA) | payer OTHER, SELFPAY | PROVIDERS: PCP Internal Medicine; Visit Provider Internal Medicine | DX: Z00.00 Encounter for general adult medical examination without abnormal findings (principal); F32.0 Major depressive disorder, single episode, mild; Z13.31 Encounter for screening for depression | CPT/HCPCS: 96127; 99396 ==

== ENCOUNTER 2025-02-17 15:45 | Outpatient (REF) | payer OTHER, SELFPAY ==
[2025-02-18 12:03] LABS: Chlamydia pneumoniae PCR Not Detected (Not Detect.); Coronavirus 229E PCR Not Detected (Not Detect.); Coronavirus HKU1 PCR Not Detected (Not Detect.); Coronavirus NL63 PCR Not Detected (Not Detect.); Coronavirus OC43 PCR Not Detected (Not Detect.); RSV PCR Not Detected (Not Detect.); Rhino/Enterovirus PCR Not Detected (Not Detect.)
[2025-02-18 12:38] LABS: Influenza A H1 PCR Not Detected (Not Detect.); Influenza A H1-2009 PCR Not Detected (Not Detect.); Influenza A H3 PCR Not Detected (Not Detect.); SARS-CoV-2 PCR Not Detected (Not Detect.)
== END 2025-02-17 15:46 | disposition home or self-care (01) ==
LOC: HO.LAB 15:45
PROVIDERS: PCP Internal Medicine; Visit Provider Physician Assistant
DX: J22 Unspecified acute lower respiratory infection (principal); J02.9 Acute pharyngitis, unspecified; F17.210 Nicotine dependence, cigarettes, uncomplicated
CPT/HCPCS: 87633; 87880; 99212

== ENCOUNTER 2025-02-17 15:45 | Outpatient (AMB) | payer OTHER, SELFPAY ==
--- NOTE | 2025-02-17 15:52 | MHC.OFFWIV ---
Intake Vital Signs 02/17/25 15:53 Height 5 ft 3 in Weight 153 lb BMI 27.1 BP 112/76 Blood Pressure Location Lt brachial Position Sitting Pulse 72 Pulse Source Pulse Oximeter Temp 98.6 F Temp Source Oral Pulse Oximetry (%) 99 Oxygen Delivery Method Room Air Intake Visit Reasons: EP-sore throat, body ache, cough Intake Note: pt presents with sore throat and minimal pain with swallowing, body aches and mild productive cough starting today Patient Tobacco Use Status: Current someday Tobacco user Allergies seafood Allergy (Mild, Verified 02/17/25 15:56) mild Do you need a note to return to daycare/school/sports/work: No HPI HPI Comments History of Present Illness Details History - The patient is a 49-year-old female presenting with symptoms of headache, sore throat, nasal congestion, and wheezing x 2 days. - She reports the onset of headaches and feeling very cold since this morning, with a burning sensation in the throat and nasal congestion. - She denies fever but reports shortness of breath and wheezing. - The patient has a history of asthma, using Symbicort and a nebulizer for relief. - She has not used [id number] medications recently as symptoms started today. - She mentions exposure to COVID-19 at work, with five employees testing positive. Physical Exam General: Cooperative, healthy appearing, comfortable and no acute distress Orientation/consciousness: Patient oriented x3 Limitations: No limitations Head: Normal to inspection Ears: Hearing grossly normal bilaterally, external ears normal and TM's normal bilaterally Nose: clear congestion Face and sinus: Normal facial exam and Yes sinuses nontender Mouth: Stuffy mouth present and moist mucous membranes Throat: Yes tonsils normal, Yes uvula midline. Posterior oropharynx erythema, no exudates Eyes: Appearance normal, both eyes and all related structures Neck: Normal visual inspection, full ROM Respiratory: Insp/exp wheezing throughout. Normal respiratory effort, able to speak in complete sentences, no respiratory distress, not tachypneic, no tripod positioning and no use of accessory muscles Cardiovascular: Regular rate and rhythm. Normal S1 and S2 Skin: No rashes or lesions noted Neuro: Patient oriented x3 Extremities: Normal to inspection and Yes no clubbing, cyanosis or edema [facility] Medical History Chronic migraine with aura Family history of breast cancer Chronic allergic rhinitis Allergies Asthma Cervical cancer screening Fibroadenoma of breast Breast mass, right Hypovitaminosis D Anemia Breast mass Depression Mild asthma Overweight Surgical History S/P excision of fibroadenoma of breast Hx of tubal ligation Hx laparoscopic cholecystectomy Gastric bypass status for obesity Hx of breast reduction, elective Family History Mother Asthma Hypertension Father Asthma Hypertension Cancer Maternal Grandmother Breast cancer Family/Other Breast cancer Social History Housing: House Alcohol intake: never Patient Tobacco Use Status: Current someday Tobacco user Tobacco use type: Cigarette Cigarettes Per Day: 2 e-Cigarette/Vaping Use: Never Used Second Hand Smoke Exposure: No service: No Current occupational status: employed Current occupational exposures/hazards: No Cognitive needs: No Hearing needs: No Vision needs: Yes Female Reproductive History Menstrual Age of Menarche: 14 Review of Systems Const All systems reviewed & are unremarkable except as noted in HPI and below Physical Exam Vital Signs: Last Vital Signs Temp 98.6 F 02/17/25 15:53 Pulse 72 02/17/25 15:53 BP 112/76 02/17/25 15:53 Pulse Ox 99 02/17/25 15:53 Oxygen Delivery Method Room Air 02/17/25 15:53 BMI result Body Mass Index 27.1 Results AMB Rapid Strep AMB Rapid Strep Negative Last Edit by Romina Jones MA on 02/17/25 16:07 Assessment & Plan Assessment & Plan (1) Lower respiratory infection (e.g., bronchitis, pneumonia, pneumonitis, pulmonitis): Code(s): J22 - Unspecified acute lower respiratory infection Plan: Plan Patient was informed and verbally consented to the use of an ambient scribe for clinic note documentation during this visit. Likely acute asthma exacerbation 2/2 viral infection - Rapid strep negative. - VSS, pt well appearing and PE remarkable for insp/exp wheezes throughout. - Prescribed prednisone 40 mg daily for five days to manage wheezing. - Advised to continue using Symbicort, nebulizer and inhaler as needed every four to six hours. - Recommended [id number] decongestants and antihistamines to alleviate symptoms. - Conducted a full viral swab. Orders: Orders AMB Rapid Strep Screen Today Z13.9 - Encounter for screening, unspecified Resp Pathogen Panel - [facility] [place] Today J06.9 - Acute upper respiratory infection, unspecified Medications: New prednisone 40 mg (2 x 20 mg) PO QAM 10 tabs 0RF Coding Level of Care Code Est Pt Level 3 (11830) Diagnoses Lower respiratory infection (e.g., bronchitis, pneumonia, pneumonitis, pulmonitis) J22
[2025-02-17 15:53] VITALS: BP 112/76; PULSE 72; TEMP 37; O2SAT 99; BMI 27.1
== END 2025-02-17 16:11 | disposition home or self-care (01) ==
PROVIDERS: PCP Internal Medicine; Visit Provider Physician Assistant
DX: Z13.9 Encounter for screening, unspecified (principal); J22 Unspecified acute lower respiratory infection